=== PATIENT | male | born 1960 | race Caucasian/White ===

== ENCOUNTER 2018-08-23 02:37 | Emergency (ER) | payer SELFPAY ==
[~2018-08-23 02:37] MED LIST: IBUP800T19 PO
[2018-08-23 03:23] LABS: BASO % 1 % (0-3); EOS # 0.1 x10^3/uL (0.0-0.7); EOS % 3 % (0-3); HEMATOCRIT 44.5 % (39.0-53.0); HEMOGLOBIN 14.8 g/dL (13.0-17.5); LYMPH # 1.9 x10^3/uL (1.0-4.8); LYMPH % 45 % (24-48); MEAN CORPUSCULAR HEMOGLOBIN 33 pg (25-35); MEAN CORPUSCULAR HGB CONC 33 g/dL (31-37); MEAN CORPUSCULAR VOLUME 99 fL (79-100); MONO # 0.3 x10^3/uL (0.0-1.1); MONO % 8 % (0-9); NEUT # 1.9 x10^3uL (1.8-7.7); NEUT % 44 % (31-73); PLATELET COUNT 111 x10^3/uL (140-400); RED BLOOD COUNT 4.52 x10^6/uL (4.30-5.70); RED CELL DISTRIBUTION WIDTH 13.4 % (11.5-14.5); WHITE BLOOD COUNT 4.4 x10^3/uL (4.0-11.0)
[2018-08-23 03:26] LABS: BACTERIA,URINE 0 /HPF (0-FEW); BILIRUBIN,URINE NEG (NEG); CLARITY,URINE CLEAR; COLOR,URINE STRAW; GLUCOSE,URINE NEG (NEG); NITRITE,URINE NEG (NEG); RBC,URINE RARE /HPF (0-2); SQUAMOUS EPITHELIAL CELL,UR OCC /LPF; UROBILINOGEN,URINE 0.2 mg/dL (0.2 mg/dL); WBC,URINE 0 /HPF (0-4)
[2018-08-23] MEDS ORDERED: MVI, ADULT NO.4 WITH VIT K 10 ML, FOLIC ACID SYRINGE for ER 1 MG, THIAMINE INJ 100 MG i... IV ONE ×4 (03:30)
[2018-08-23] MEDS ORDERED: KETOROLAC 30 MG/ML VIAL. IV ONE (03:30)
[2018-08-23] MEDS ORDERED: MVI, ADULT NO.4 WITH VIT K 10 ML VIAL IV ONE (03:33)
[2018-08-23] MEDS ORDERED: FOLIC ACID 5 MG/ML SYRINGE for ER IV ONE (03:33)
[2018-08-23] MEDS ORDERED: THIAMINE IM 200 MG/2 ML VIAL. IM ONE (03:33)
[2018-08-23 03:52] LABS: BARBITURATES NEG (NEG); BENZODIAZEPINES NEG (NEG); CANNABINOIDS NEG (NEG); COCAINE NEG (NEG); METHADONE NEG (NEG); OPIATES NEG (NEG); PHENCYCLIDINE NEG (NEG)
[2018-08-23 03:53] LABS: AMPHETAMINE/METHAMPHETAMINE NEG (NEG)
[2018-08-23 03:56] LABS: ALBUMIN 4.1 g/dL (3.4-5.0); ALBUMIN/GLOBULIN RATIO 1.1 (1.0-1.7); CALCIUM 7.9 mg/dL (8.5-10.1); CREATININE 0.7 mg/dL (0.7-1.3); GFR 115.4; POTASSIUM 3.7 mmol/L (3.5-5.1); TOTAL BILIRUBIN 0.2 mg/dL (0.2-1.0); TOTAL PROTEIN 7.8 g/dL (6.4-8.2)
[2018-08-23] MEDS ORDERED: IV NORMAL SALINE 1,000ML 1,000 ML IV ONE ×3 (04:00→08:15)
--- NOTE | 2018-08-23 04:11 | ED.ADGEN ---
Past History Past Medical History: Alcoholism, Depression, Hypertension (MIA STALEY MD) Past Surgical History: No Surgical History (MIA STALEY MD) Alcohol Use: Heavy Drug Use: None (MIA STALEY MD) Adult General Chief Complaint Chief Complaint Intoxicated with suicide ideation (MIA STALEY MD) HPI HPI 58 years old presented emergency department with a suicide ideation stating, kill myself he also seemed intoxicated denies any other symptoms denies chest pain or abdominal pain diarrhea and urgency frequency a (MIA STALEY MD) Review of Systems Review of Systems Limited due to patient's mental status (MIA STALEY MD) Current Medications Current Medications Current Medications Medications (Trade) Dose Ordered Sig/Tara Start Time Stop Time Status Last Admin Dose Admin Folic Acid (FOLIC ACID SYRINGE for ER) 5 mg STK-MED ONCE 08/23/18 03:33 08/23/18 03:35 DC Ketorolac Tromethamine (Toradol 30mg Vial) 30 mg 1X ONCE 08/23/18 03:30 08/23/18 03:32 DC 08/23/18 03:45 30 MG Multivitamins/ Minerals (Infuvite Adult) 10 ml STK-MED ONCE 08/23/18 03:33 08/23/18 03:35 DC Multivitamins/ Minerals 10 ml/ Folic Acid 1 mg/ Thiamine HCl 100 mg/Sodium Chloride 1,011.1 ml @ 1,000 mls/ hr 1X ONCE 08/23/18 03:30 08/23/18 04:31 DC 08/23/18 03:47 1,000 MLS/HR Sodium Chloride 1,000 ml @ 1,000 mls/hr 1X ONCE 08/23/18 08:15 08/23/18 09:14 DC 08/23/18 08:14 1,000 MLS/HR Thiamine HCl (Thiamine Im) 200 mg STK-MED ONCE 08/23/18 03:33 08/23/18 03:34 DC (LG RENDON MD) Allergies Allergies Allergies Coded Allergies Type Severity Reaction Last Updated Verified No Known Drug Allergies 12/01/14 No (LG RENDON MD) Physical Exam Physical Exam Constitutional: Well developed, well nourished, no acute distress, non-toxic appearance. [] HENT: Normocephalic, atraumatic, bilateral external ears normal, oropharynx moist, no oral exudates, nose normal. [] Eyes: PERRLA, EOMI, conjunctiva normal, no discharge. [] Neck: Normal range of motion, no tenderness, supple, no stridor. [] Cardiovascular:Heart rate regular rhythm, no murmur [] Lungs & Thorax: Bilateral breath sounds clear to auscultation [] Abdomen: Bowel sounds normal, soft, no tenderness, no masses, no pulsatile masses. [] Skin: Warm, dry, no erythema, no rash. [] Back: No tenderness, no CVA tenderness. [] Extremities: No tenderness, no cyanosis, no clubbing, ROM intact, no edema. [] Very depressed very anxious (MIA STALEY MD) Current Patient Data Vital Signs Vital Signs Date Time Temp Pulse Resp B/P (MAP) Pulse Ox O2 Delivery O2 Flow Rate FiO2 08/23/18 07:08 97.6 72 16 111/66 (81) 93 Room Air (LG RENDON MD) Lab Results Laboratory Tests Test 08/23/18 02:40 08/23/18 03:00 08/23/18 07:35 08/23/18 08:22 Urine Collection Type Unknown Urine Color Straw Urine Clarity Clear Urine pH 5.5 Urine Specific [place] <=1.005 Urine Protein Neg (NEG-TRACE) Urine Glucose (UA) Neg mg/dL (NEG) Urine Ketones (Stick) Neg mg/dL (NEG) Urine Blood Neg (NEG) Urine Nitrite Neg (NEG) Urine Bilirubin Neg (NEG) Urine Urobilinogen Dipstick 0.2 mg/dL (0.2 mg/dL) Urine Leukocyte Esterase Neg (NEG) Urine RBC Rare /HPF (0-2) Urine WBC 0 /HPF (0-4) Urine Squamous Epithelial Cells Occ /LPF Urine Bacteria 0 /HPF (0-FEW) White Blood Count 4.4 x10^3/uL (4.0-11.0) Red Blood Count 4.52 x10^6/uL (4.30-5.70) Hemoglobin 14.8 g/dL (13.0-17.5) Hematocrit 44.5 % (39.0-53.0) Mean Corpuscular Volume 99 fL (79-100) Mean Corpuscular Hemoglobin 33 pg (25-35) Mean Corpuscular Hemoglobin Concent 33 g/dL (31-37) Red Cell Distribution Width 13.4 % (11.5-14.5) Platelet Count 111 x10^3/uL (140-400) L Neutrophils (%) (Auto) 44 % (31-73) Lymphocytes (%) (Auto) 45 % (24-48) Monocytes (%) (Auto) 8 % (0-9) Eosinophils (%) (Auto) 3 % (0-3) Basophils (%) (Auto) 1 % (0-3) Neutrophils # (Auto) 1.9 x10^3uL (1.8-7.7) Lymphocytes # (Auto) 1.9 x10^3/uL (1.0-4.8) Monocytes # (Auto) 0.3 x10^3/uL (0.0-1.1) Eosinophils # (Auto) 0.1 x10^3/uL (0.0-0.7) Basophils # (Auto) 0.0 x10^3/uL (0.0-0.2) Sodium Level 141 mmol/L (136-145) Potassium Level 3.7 mmol/L (3.5-5.1) Chloride Level 101 mmol/L (98-107) Carbon Dioxide Level 28 mmol/L (21-32) Anion Gap 12 (6-14) Blood Urea Nitrogen 10 mg/dL (8-26) Creatinine 0.7 mg/dL (0.7-1.3) Estimated GFR (Cockcroft-Gault) 115.4 BUN/Creatinine Ratio 14 (6-20) Glucose Level 100 mg/dL (70-99) H Calcium Level 7.9 mg/dL (8.5-10.1) L Total Bilirubin 0.2 mg/dL (0.2-1.0) Aspartate Amino Transferase (AST) 44 U/L (15-37) H Alanine Aminotransferase (ALT) 53 U/L (16-63) Alkaline Phosphatase 88 U/L (46-116) Total Protein 7.8 g/dL (6.4-8.2) Albumin 4.1 g/dL (3.4-5.0) Albumin/Globulin Ratio 1.1 (1.0-1.7) Urine Opiates Screen Neg (NEG) Urine Methadone Screen Neg (NEG) Urine Barbiturates Neg (NEG) Urine Phencyclidine Screen Neg (NEG) Urine Amphetamine/Methamphetamine Neg (NEG) Urine Benzodiazepines Screen Neg (NEG) Urine Cocaine Screen Neg (NEG) Urine Cannabinoids Screen Neg (NEG) Ethyl Alcohol Level 344 mg/dL (0-10) H 237 mg/dL (0-10) H Urine Ethyl Alcohol Pos (NEG) Glucose (Fingerstick) 84 mg/dL (70-99) Test 08/23/18 08:54 Ethyl Alcohol Level 206 mg/dL (0-10) H (LG RENDON MD) EKG EKG [] (MIA STALEY MD) Radiology/Procedures Radiology/Procedures [] (MIA STALEY MD) Course & Med Decision Making Course & Med Decision Making Pertinent Labs and Imaging studies reviewed. (See chart for details) [] (MIA STALEY MD) Course & Med Decision Making Patient's care transferred to id by Dr. Staley at [phone]. Patient had alcohol intoxication and suicidal talked with blood alcohol of 333. Repeat blood alcohol was 237 and 206. Patient had psychiatric evaluation and denied suicidal and homicidal ideation. Patient did not have criteria for inpatient treatment. Patient instructed to quit drinking alcohol and smoking cigarettes and follow with a primary care physician. Patient ambulated without problem and tolerated oral intake. (LG RENDON MD) Final Impression Final Impression [] Problems: (1) Intoxication (2) Suicide ideation (MIA STALEY MD) Problems: (1) Alcohol intoxication Qualifiers: Qualified Codes: F10.920 - Alcohol use, unspecified with intoxication, uncomplicated (2) Suicidal thoughts (3) Tobacco abuse (4) Tobacco abuse counseling (LG RENDON MD) Dragon Disclaimer Dragon Disclaimer This electronic medical record was generated, in whole or in part, using a voice recognition dictation system. (MIA STALEY MD) Departure Time of Disposition: 11:11 (LG RENDON MD) Disposition: 01 HOME, SELF-CARE Condition: IMPROVED Patient Instructions: Alcohol Intoxication, Smoking Cessation, Tips For Success , Suicidal Feelings, How to Help Yourself Additional Instructions: Drink plenty of liquids Follow-up with your primary care physician in 3-5 days Return to ER if not getting better MIA STALEY MD Aug 23, 2018 04:11 LG RENDON MD Aug 23, 2018 11:19
[2018-08-23 07:08] VITALS: BP 111/66
== END 2018-08-23 12:00 | disposition home or self-care (01) ==
LOC: ER 02:37
DX: F10.229 Alcohol dependence with intoxication, unspecified (principal); R45.851 Suicidal ideations; F32.9 Major depressive disorder, single episode, unspecified; I10 Essential (primary) hypertension; Z72.0 Tobacco use; Z71.6 Tobacco abuse counseling; Y90.8 Blood alcohol level of 240 mg/100 ml or more
CPT/HCPCS: 36415; 80053; 80307; 81001; 82947; 85025; 96365; 96366; 96375; 99284; G0480; J1885; J7030

== ENCOUNTER 2018-09-26 18:44 | Inpatient (IN) | payer SELFPAY ==
[~2018-09-26] VITALS: Ht 185.4 cm; Wt 86.2 kg
[2018-09-26] MEDS: IV RINGERS SOLUTION,LACTATED 1,000 ML IV SCH
--- NOTE | 2018-09-26 18:52 | ED.ADGEN ---
Past History Past Medical History: Alcoholism, Depression, Hypertension Past Surgical History: No Surgical History Alcohol Use: Heavy Drug Use: None Adult General Chief Complaint Chief Complaint ".. I want to quit alcohol.. but if I try .. I get seizures.. .. I drank way... too much tonight..." HPI HPI Patient is a 58 year old male who presents with above hx and complaints alcohol intoxication. Patient states he drinks much he can not stand or walk. He states he would like to have alcohol rehabilitation, however when he stops drinking he developed seizures. Patient states he has been sober previously for several months at a time. He denies any injuries. No recent travel or specific ill contacts. No history immunosuppression. Review of Systems Review of Systems Constitutional: Denies fever or chills [] Eyes: Denies change in visual acuity, redness, or eye pain [] HENT: Denies nasal congestion or sore throat [] Respiratory: Denies cough or shortness of breath [] Cardiovascular: No additional information not addressed in HPI [] GI: Denies abdominal pain, nausea, vomiting, bloody stools or diarrhea [] : Denies dysuria or hematuria [] Musculoskeletal: Denies back pain or joint pain [] Integument: Denies rash or skin lesions [] Neurologic: Denies headache, focal weakness or sensory changes [] Endocrine: Denies polyuria or polydipsia [] All other systems were reviewed and found to be within normal limits, except as documented in this note. Family History Family History Noncontributory Current Medications Current Medications Current Medications Medications (Trade) Dose Ordered Sig/Tara Start Time Stop Time Status Last Admin Dose Admin Lactated Ringer's 1,000 ml @ 160 mls/hr Q6H15M 09/26/18 21:00 09/26/18 00:00 160 MLS/HR Lorazepam (Ativan) 2 mg QID 09/26/18 21:00 Multivitamins/ Minerals 10 ml/ Folic Acid 1 mg/ Thiamine HCl 100 mg/Lactated Ringer's 1,011.2 ml @ 1,011.2 mls/hr 1X ONCE 09/26/18 19:00 09/26/18 19:59 DC 09/26/18 19:36 1,011.2 MLS/HR Ondansetron HCl (Zofran) 4 mg PRN Q4HRS PRN 09/26/18 20:45 09/27/18 20:44 Allergies Allergies Allergies Coded Allergies Type Severity Reaction Last Updated Verified No Known Drug Allergies 09/26/18 No Physical Exam Physical Exam Constitutional: Very intoxicated in appearance. [] HENT: Normocephalic, atraumatic, bilateral external ears normal, oropharynx moist, no oral exudates, nose normal. [] Eyes: PERRLA, EOMI, conjunctiva injected, no discharge. [] Neck: Normal range of motion, no tenderness, supple, no stridor. [] Cardiovascular: Tachycardia Heart rate regular rhythm, no murmur [] Lungs & Thorax: Bilateral breath sounds equal apex with scattered wheezes on auscultation [] Abdomen: Bowel sounds decreased, soft, no tenderness, no masses, no pulsatile masses. [] Skin: Warm, dry, no erythema, no rash. [] Back: No tenderness, no CVA tenderness. [] Extremities: No tenderness, no cyanosis, no clubbing, ROM intact, no edema. [] Old and new contusion sites and bony points Neurologic: Alert and oriented X 3, moves all extremities on request. Has decreased plantar sensory function, discoordinated . Unable to walk due to intoxication Psychologic: Affect anxious, judgement normal, mood depressed. Denies suicidal ideation. Current Patient Data Vital Signs Vital Signs Date Time Temp Pulse Resp B/P (MAP) Pulse Ox O2 Delivery O2 Flow Rate FiO2 09/26/18 21:08 79 16 138/79 (98) 94 Room Air 09/26/18 18:44 97.9 Lab Results Laboratory Tests Test 09/26/18 19:00 White Blood Count 3.7 x10^3/uL (4.0-11.0) L Red Blood Count 4.60 x10^6/uL (4.30-5.70) Hemoglobin 15.0 g/dL (13.0-17.5) Hematocrit 44.7 % (39.0-53.0) Mean Corpuscular Volume 97 fL (79-100) Mean Corpuscular Hemoglobin 33 pg (25-35) Mean Corpuscular Hemoglobin Concent 34 g/dL (31-37) Red Cell Distribution Width 13.0 % (11.5-14.5) Platelet Count 81 x10^3/uL (140-400) L Neutrophils (%) (Auto) 42 % (31-73) Lymphocytes (%) (Auto) 44 % (24-48) Monocytes (%) (Auto) 11 % (0-9) H Eosinophils (%) (Auto) 2 % (0-3) Basophils (%) (Auto) 1 % (0-3) Neutrophils # (Auto) 1.6 x10^3uL (1.8-7.7) L Lymphocytes # (Auto) 1.6 x10^3/uL (1.0-4.8) Monocytes # (Auto) 0.4 x10^3/uL (0.0-1.1) Eosinophils # (Auto) 0.1 x10^3/uL (0.0-0.7) Basophils # (Auto) 0.0 x10^3/uL (0.0-0.2) Prothrombin Time 9.8 SEC (9.4-11.4) Prothrombin Time INR 1.0 (0.9-1.1) PTT 27 SEC (23-33) Urine Collection Type Unknown Urine Color Straw Urine Clarity Clear Urine pH 5.5 Urine Specific [place] <=1.005 Urine Protein Neg (NEG-TRACE) Urine Glucose (UA) Neg mg/dL (NEG) Urine Ketones (Stick) Neg mg/dL (NEG) Urine Blood Neg (NEG) Urine Nitrite Neg (NEG) Urine Bilirubin Neg (NEG) Urine Urobilinogen Dipstick 0.2 mg/dL (0.2 mg/dL) Urine Leukocyte Esterase Neg (NEG) Urine RBC 0 /HPF (0-2) Urine WBC 0 /HPF (0-4) Urine Squamous Epithelial Cells Occ /LPF Urine Bacteria 0 /HPF (0-FEW) Sodium Level 144 mmol/L (136-145) Potassium Level 4.1 mmol/L (3.5-5.1) Chloride Level 105 mmol/L (98-107) Carbon Dioxide Level 29 mmol/L (21-32) Anion Gap 10 (6-14) Blood Urea Nitrogen 7 mg/dL (8-26) L Creatinine 0.8 mg/dL (0.7-1.3) Estimated GFR (Cockcroft-Gault) 98.9 Glucose Level 98 mg/dL (70-99) Calcium Level 7.9 mg/dL (8.5-10.1) L Magnesium Level 2.1 mg/dL (1.8-2.4) Total Bilirubin 0.3 mg/dL (0.2-1.0) Direct Bilirubin 0.1 mg/dL (0.0-0.2) Aspartate Amino Transferase (AST) 69 U/L (15-37) H Alanine Aminotransferase (ALT) 68 U/L (16-63) H Alkaline Phosphatase 80 U/L (46-116) Creatine Kinase 258 U/L (39-308) Troponin I Quantitative < 0.017 ng/mL (0-0.055) ZG-Ope-X-Type Natriuretic Peptide 9 pg/mL (0-124) Total Protein 7.6 g/dL (6.4-8.2) Albumin 3.8 g/dL (3.4-5.0) Lipase 247 U/L (73-393) Urine Opiates Screen Neg (NEG) Urine Methadone Screen Neg (NEG) Urine Barbiturates Neg (NEG) Urine Phencyclidine Screen Neg (NEG) Urine Amphetamine/Methamphetamine Neg (NEG) Urine Benzodiazepines Screen Neg (NEG) Urine Cocaine Screen Neg (NEG) Urine Cannabinoids Screen Neg (NEG) Ethyl Alcohol Level 408 mg/dL (0-10) *H Urine Ethyl Alcohol Pos (NEG) EKG EKG I interpretation EKG shows a sinus rhythm at 86 bpm. There is some nonspecific contour changes in anterior lateral areas. But no findings acute STEMI of contralateral changes.[] Radiology/Procedures Radiology/Procedures CXR- limited - no monitor. Borderline cardio silhouette. Atelectasis. Limited no xray monitor[] Course & Med Decision Making Course & Med Decision Making Pertinent Labs and Imaging studies reviewed. (See chart for details). Discussed presentation, testing and treatment plan with Dr. Stewart- will admit for further eval. and tx. [] Final Impression Final Impression 1. Alcohol abuse- ETOH 408 2. Elevated AST 69 ALT 68[] 3. Thrombocytopenia 81 4. Dehydration 5. History of alcohol withdrawal seizures 6. Depression Dragon Disclaimer Dragon Disclaimer This electronic medical record was generated, in whole or in part, using a voice recognition dictation system. Dragon Disclaimer This chart was dictated in whole or in part using Voice Recognition software in a busy, high-work load, and often noisy Emergency Department environment. It may contain unintended and wholly unrecognized errors or omissions. Dragon Disclaimer This chart was dictated in whole or in part using Voice Recognition software in a busy, high-work load, and often noisy Emergency Department environment. It may contain unintended and wholly unrecognized errors or omissions. Discharge Summary Brief Hospital Course Allergies Allergies Coded Allergies Type Severity Reaction Last Updated Verified No Known Drug Allergies 09/26/18 No Vital Signs Vital Signs Date Time Temp Pulse Resp B/P (MAP) Pulse Ox O2 Delivery O2 Flow Rate FiO2 09/26/18 21:08 79 16 138/79 (98) 94 Room Air 09/26/18 18:44 97.9 Lab Results Laboratory Tests Test 09/26/18 19:00 White Blood Count 3.7 x10^3/uL (4.0-11.0) Red Blood Count 4.60 x10^6/uL (4.30-5.70) Hemoglobin 15.0 g/dL (13.0-17.5) Hematocrit 44.7 % (39.0-53.0) Mean Corpuscular Volume 97 fL (79-100) Mean Corpuscular Hemoglobin 33 pg (25-35) Mean Corpuscular Hemoglobin Concent 34 g/dL (31-37) Red Cell Distribution Width 13.0 % (11.5-14.5) Platelet Count 81 x10^3/uL (140-400) Neutrophils (%) (Auto) 42 % (31-73) Lymphocytes (%) (Auto) 44 % (24-48) Monocytes (%) (Auto) 11 % (0-9) Eosinophils (%) (Auto) 2 % (0-3) Basophils (%) (Auto) 1 % (0-3) Neutrophils # (Auto) 1.6 x10^3uL (1.8-7.7) Lymphocytes # (Auto) 1.6 x10^3/uL (1.0-4.8) Monocytes # (Auto) 0.4 x10^3/uL (0.0-1.1) Eosinophils # (Auto) 0.1 x10^3/uL (0.0-0.7) Basophils # (Auto) 0.0 x10^3/uL (0.0-0.2) Prothrombin Time 9.8 SEC (9.4-11.4) Prothromb Time International Ratio 1.0 (0.9-1.1) Activated Partial Thromboplast Time 27 SEC (23-33) Urine Collection Type Unknown Urine Color Straw Urine Clarity Clear Urine pH 5.5 Urine Specific [place] <=1.005 Urine Protein Neg (NEG-TRACE) Urine Glucose (UA) Neg mg/dL (NEG) Urine Ketones (Stick) Neg mg/dL (NEG) Urine Blood Neg (NEG) Urine Nitrite Neg (NEG) Urine Bilirubin Neg (NEG) Urine Urobilinogen Dipstick 0.2 mg/dL (0.2 mg/dL) Urine Leukocyte Esterase Neg (NEG) Urine RBC 0 /HPF (0-2) Urine WBC 0 /HPF (0-4) Urine Squamous Epithelial Cells Occ /LPF Urine Bacteria 0 /HPF (0-FEW) Sodium Level 144 mmol/L (136-145) Potassium Level 4.1 mmol/L (3.5-5.1) Chloride Level 105 mmol/L (98-107) Carbon Dioxide Level 29 mmol/L (21-32) Anion Gap 10 (6-14) Blood Urea Nitrogen 7 mg/dL (8-26) Creatinine 0.8 mg/dL (0.7-1.3) Estimated GFR (Cockcroft-Gault) 98.9 Glucose Level 98 mg/dL (70-99) Calcium Level 7.9 mg/dL (8.5-10.1) Magnesium Level 2.1 mg/dL (1.8-2.4) Total Bilirubin 0.3 mg/dL (0.2-1.0) Direct Bilirubin 0.1 mg/dL (0.0-0.2) Aspartate Amino Transf (AST/SGOT) 69 U/L (15-37) Alanine Aminotransferase (ALT/SGPT) 68 U/L (16-63) Alkaline Phosphatase 80 U/L (46-116) Creatine Kinase 258 U/L (39-308) Troponin I Quantitative < 0.017 ng/mL (0-0.055) AD-Lhm-X-Type Natriuretic Peptide 9 pg/mL (0-124) Total Protein 7.6 g/dL (6.4-8.2) Albumin 3.8 g/dL (3.4-5.0) Lipase 247 U/L (73-393) Urine Opiates Screen Neg (NEG) Urine Methadone Screen Neg (NEG) Urine Barbiturates Neg (NEG) Urine Phencyclidine Screen Neg (NEG) Urine Amphetamine/Methamphetamine Neg (NEG) Urine Benzodiazepines Screen Neg (NEG) Urine Cocaine Screen Neg (NEG) Urine Cannabinoids Screen Neg (NEG) Ethyl Alcohol Level 408 mg/dL (0-10) Urine Ethyl Alcohol Pos (NEG) Brief Hospital Course Mr. Whitley is a 58 old male who presented with above hx and complaints ETOH. Hx. ETOH withdrawal. Admitted Dr. Stewart. Discharge Information Condition at Discharge: Improved, Stable Dischare Medications Current Medications Multivitamins/ Minerals 10 ml/ Folic Acid 1 mg/ Thiamine HCl 100 mg/Lactated Ringer's 1,011.2 ml @ 1,011.2 mls/hr 1X ONCE IV Last administered on at 19:36; Admin Dose 1,011.2 MLS/HR; Start 09/26/18 at 19:00; Stop 09/26/18 at 19:59; Status DC Ondansetron HCl (Zofran) 4 mg PRN Q4HRS PRN IV NAUSEA/VOMITING; Start 09/26/18 at 20:45; Stop 09/27/18 at 20:44 Lactated Ringer's 1,000 ml @ 160 mls/hr Q6H15M IV Last administered on at 00:00; Admin Dose 160 MLS/HR; Start 09/26/18 at 21:00 Lorazepam (Ativan) 2 mg PRN 1X PRN IV seizure; Start 09/26/18 at 20:45 Lorazepam (Ativan) 2 mg QID PO ; Start 09/26/18 at 21:00 Active Scripts Active Ibuprofen 800 Mg Tablet 1 Tab PO TID PRN Discharge Summary Brief Hospital Course Allergies Allergies Coded Allergies Type Severity Reaction Last Updated Verified No Known Drug Allergies 09/26/18 No Vital Signs Vital Signs Date Time Temp Pulse Resp B/P (MAP) Pulse Ox O2 Delivery O2 Flow Rate FiO2 09/26/18 21:08 79 16 138/79 (98) 94 Room Air 09/26/18 18:44 97.9 Lab Results Laboratory Tests Test 09/26/18 19:00 White Blood Count 3.7 x10^3/uL (4.0-11.0) Red Blood Count 4.60 x10^6/uL (4.30-5.70) Hemoglobin 15.0 g/dL (13.0-17.5) Hematocrit 44.7 % (39.0-53.0) Mean Corpuscular Volume 97 fL (79-100) Mean Corpuscular Hemoglobin 33 pg (25-35) Mean Corpuscular Hemoglobin Concent 34 g/dL (31-37) Red Cell Distribution Width 13.0 % (11.5-14.5) Platelet Count 81 x10^3/uL (140-400) Neutrophils (%) (Auto) 42 % (31-73) Lymphocytes (%) (Auto) 44 % (24-48) Monocytes (%) (Auto) 11 % (0-9) Eosinophils (%) (Auto) 2 % (0-3) Basophils (%) (Auto) 1 % (0-3) Neutrophils # (Auto) 1.6 x10^3uL (1.8-7.7) Lymphocytes # (Auto) 1.6 x10^3/uL (1.0-4.8) Monocytes # (Auto) 0.4 x10^3/uL (0.0-1.1) Eosinophils # (Auto) 0.1 x10^3/uL (0.0-0.7) Basophils # (Auto) 0.0 x10^3/uL (0.0-0.2) Prothrombin Time 9.8 SEC (9.4-11.4) Prothromb Time International Ratio 1.0 (0.9-1.1) Activated Partial Thromboplast Time 27 SEC (23-33) Urine Collection Type Unknown Urine Color Straw Urine Clarity Clear Urine pH 5.5 Urine Specific [place] <=1.005 Urine Protein Neg (NEG-TRACE) Urine Glucose (UA) Neg mg/dL (NEG) Urine Ketones (Stick) Neg mg/dL (NEG) Urine Blood Neg (NEG) Urine Nitrite Neg (NEG) Urine Bilirubin Neg (NEG) Urine Urobilinogen Dipstick 0.2 mg/dL (0.2 mg/dL) Urine Leukocyte Esterase Neg (NEG) Urine RBC 0 /HPF (0-2) Urine WBC 0 /HPF (0-4) Urine Squamous Epithelial Cells Occ /LPF Urine Bacteria 0 /HPF (0-FEW) Sodium Level 144 mmol/L (136-145) Potassium Level 4.1 mmol/L (3.5-5.1) Chloride Level 105 mmol/L (98-107) Carbon Dioxide Level 29 mmol/L (21-32) Anion Gap 10 (6-14) Blood Urea Nitrogen 7 mg/dL (8-26) Creatinine 0.8 mg/dL (0.7-1.3) Estimated GFR (Cockcroft-Gault) 98.9 Glucose Level 98 mg/dL (70-99) Calcium Level 7.9 mg/dL (8.5-10.1) Magnesium Level 2.1 mg/dL (1.8-2.4) Total Bilirubin 0.3 mg/dL (0.2-1.0) Direct Bilirubin 0.1 mg/dL (0.0-0.2) Aspartate Amino Transf (AST/SGOT) 69 U/L (15-37) Alanine Aminotransferase (ALT/SGPT) 68 U/L (16-63) Alkaline Phosphatase 80 U/L (46-116) Creatine Kinase 258 U/L (39-308) Troponin I Quantitative < 0.017 ng/mL (0-0.055) WK-Xxd-Y-Type Natriuretic Peptide 9 pg/mL (0-124) Total Protein 7.6 g/dL (6.4-8.2) Albumin 3.8 g/dL (3.4-5.0) Lipase 247 U/L (73-393) Urine Opiates Screen Neg (NEG) Urine Methadone Screen Neg (NEG) Urine Barbiturates Neg (NEG) Urine Phencyclidine Screen Neg (NEG) Urine Amphetamine/Methamphetamine Neg (NEG) Urine Benzodiazepines Screen Neg (NEG) Urine Cocaine Screen Neg (NEG) Urine Cannabinoids Screen Neg (NEG) Ethyl Alcohol Level 408 mg/dL (0-10) Urine Ethyl Alcohol Pos (NEG) Brief Hospital Course Mr. Whitley is a 58 old [sex] who presented with [ ] Discharge Information Dischare Medications Current Medications Multivitamins/ Minerals 10 ml/ Folic Acid 1 mg/ Thiamine HCl 100 mg/Lactated Ringer's 1,011.2 ml @ 1,011.2 mls/hr 1X ONCE IV Last administered on at 19:36; Admin Dose 1,011.2 MLS/HR; Start 09/26/18 at 19:00; Stop 09/26/18 at 19:59; Status DC Ondansetron HCl (Zofran) 4 mg PRN Q4HRS PRN IV NAUSEA/VOMITING; Start 09/26/18 at 20:45; Stop 09/27/18 at 20:44 Lactated Ringer's 1,000 ml @ 160 mls/hr Q6H15M IV Last administered on at 00:00; Admin Dose 160 MLS/HR; Start 09/26/18 at 21:00 Lorazepam (Ativan) 2 mg PRN 1X PRN IV seizure; Start 09/26/18 at 20:45 Lorazepam (Ativan) 2 mg QID PO ; Start 09/26/18 at 21:00 Active Scripts Active Ibuprofen 800 Mg Tablet 1 Tab PO TID PRN HORTENSIA SYKES MD Sep 26, 2018 18:52
[2018-09-26] MEDS ORDERED: MVI, ADULT NO.4 WITH VIT K 10 ML, FOLIC ACID SYRINGE for ER 1 MG, THIAMINE INJ 100 MG i... IV ONE ×4 (19:00)
[2018-09-26] MEDS ORDERED: MVI, ADULT NO.4 WITH VIT K 10 ML VIAL IV ONE (19:30)
[2018-09-26] MEDS ORDERED: FOLIC ACID 5 MG/ML SYRINGE for ER IV ONE (19:30)
[2018-09-26] MEDS ORDERED: THIAMINE 200 MG/2 ML VIAL. IV ONE (19:30)
[2018-09-26 19:43] LABS: BARBITURATES NEG (NEG); BASO % 1 % (0-3); BENZODIAZEPINES NEG (NEG); CANNABINOIDS NEG (NEG); COCAINE NEG (NEG); EOS # 0.1 x10^3/uL (0.0-0.7); EOS % 2 % (0-3); HEMATOCRIT 44.7 % (39.0-53.0); LYMPH # 1.6 x10^3/uL (1.0-4.8); LYMPH % 44 % (24-48); MEAN CORPUSCULAR HEMOGLOBIN 33 pg (25-35); MEAN CORPUSCULAR HGB CONC 34 g/dL (31-37); MEAN CORPUSCULAR VOLUME 97 fL (79-100); METHADONE NEG (NEG); MONO # 0.4 x10^3/uL (0.0-1.1); MONO % 11 % (0-9); NEUT # 1.6 x10^3uL (1.8-7.7); NEUT % 42 % (31-73); OPIATES NEG (NEG); PHENCYCLIDINE NEG (NEG); PLATELET COUNT 81 x10^3/uL (140-400); WHITE BLOOD COUNT 3.7 x10^3/uL (4.0-11.0)
[2018-09-26 19:44] LABS: AMPHETAMINE/METHAMPHETAMINE NEG (NEG)
[2018-09-26 19:46] LABS: CLARITY,URINE CLEAR; COLOR,URINE STRAW; GLUCOSE,URINE NEG (NEG)
[2018-09-26 19:47] LABS: BACTERIA,URINE 0 /HPF (0-FEW); BILIRUBIN,URINE NEG (NEG); NITRITE,URINE NEG (NEG); RBC,URINE 0 /HPF (0-2); SQUAMOUS EPITHELIAL CELL,UR OCC /LPF; UROBILINOGEN,URINE 0.2 mg/dL (0.2 mg/dL); WBC,URINE 0 /HPF (0-4)
[2018-09-26 19:59] LABS: ALBUMIN 3.8 g/dL (3.4-5.0); CALCIUM 7.9 mg/dL (8.5-10.1); CREATININE 0.8 mg/dL (0.7-1.3); DIRECT BILIRUBIN 0.1 mg/dL (0.0-0.2); GFR 98.9; MAGNESIUM 2.1 mg/dL (1.8-2.4); POTASSIUM 4.1 mmol/L (3.5-5.1); TOTAL BILIRUBIN 0.3 mg/dL (0.2-1.0); TOTAL PROTEIN 7.6 g/dL (6.4-8.2)
[2018-09-26] MEDS ORDERED: LORazepam 2 MG/ML VIAL IV PRN (20:45)
[2018-09-26] MEDS ORDERED: ONDANSETRON PF 4 MG/2 ML VIAL. IV PRN (20:45)
[2018-09-26] MEDS ORDERED: LORazepam 1 MG TABLET PO SCH (21:00)
[2018-09-26 23:00] VITALS: BP 135/53
[2018-09-27] VITALS (10 sets, daily range): BP systolic 111–184; BP diastolic 65–87
[2018-09-27] MEDS ORDERED: IPRATRPIUM/ALBUTEROL 0.5/2.5MG 3 ML NEBU. ONE (05:33)
[2018-09-27] MEDS: IV RINGERS SOLUTION,LACTATED 1,000 ML IV SCH ×4 (05:47→21:17)
[2018-09-27] MEDS: IPRATRPIUM/ALBUTEROL 0.5/2.5MG 3 ML NEBU. NEB SCH ×4 (06:00→21:12)
[2018-09-27 06:03] LABS: BASO % 1 % (0-3); EOS # 0.1 x10^3/uL (0.0-0.7); EOS % 2 % (0-3); HEMATOCRIT 42.9 % (39.0-53.0); HEMOGLOBIN 14.2 g/dL (13.0-17.5); LYMPH % 20 % (24-48); MEAN CORPUSCULAR HEMOGLOBIN 32 pg (25-35); MEAN CORPUSCULAR HGB CONC 33 g/dL (31-37); MEAN CORPUSCULAR VOLUME 98 fL (79-100); MONO # 0.3 x10^3/uL (0.0-1.1); MONO % 7 % (0-9); NEUT # 3.5 x10^3uL (1.8-7.7); NEUT % 70 % (31-73); PLATELET COUNT 64 x10^3/uL (140-400); RED BLOOD COUNT 4.37 x10^6/uL (4.30-5.70); RED CELL DISTRIBUTION WIDTH 13.3 % (11.5-14.5); WHITE BLOOD COUNT 4.9 x10^3/uL (4.0-11.0)
[2018-09-27 06:12] LABS: CALCIUM 8.2 mg/dL (8.5-10.1); CREATININE 0.8 mg/dL (0.7-1.3); GFR 98.9; POTASSIUM 4.3 mmol/L (3.5-5.1)
[2018-09-27] MEDS ORDERED: cloNIDine HCL 0.1 MG TABLET PO PRN (07:15)
[2018-09-27] MEDS: MVI, ADULT NO.4 WITH VIT K 10 ML, FOLIC ACID SYRINGE for ER 1 MG, THIAMINE INJ 100 MG i... IV SCH ×4 (09:05)
[2018-09-27] MEDS: chlordiazePOXIDE HCL 25 MG CAPSULE PO PRN ×2 (10:01→15:23)
--- NOTE | 2018-09-27 12:15 | RAD ---
Indication:Tachycardia TECHNIQUE:Portable AP chest X-ray COMPARISON: None FINDINGS: Heart is normal in size. Lungs are clear. No pneumothorax or pleural effusion. Visualized bony thorax is within normal limits. IMPRESSION: No acute pulmonary process. Electronically signed by: Sharif Girard DO (09/27/2018 12:10 PM) [place]
--- NOTE | 2018-09-27 18:15 | HP ---
ADMIT DATE: 09/26/2018 HISTORY OF PRESENT ILLNESS: A 58-year-old male who came in through the Emergency Room with once he quit alcohol he gets seizures when he comes off, used to drink too much. The patient also is very depressed, very suicidal ideation, but no thoughts of carrying it out. The patient liked to go through alcohol rehab and developed a seizure activity. The patient was admitted for further evaluation and monitoring as he goes through detox. PAST MEDICAL HISTORY: Cardiac disorders, hypertension, depression, anxiety, self-mutilation, alcohol abuse. Influenzas immunizations are up-to-date. FAMILY HISTORY: Positive for substance abuse. HOME MEDICATIONS: Ibuprofen 800 t.i.d. p.r.n. ALLERGIES: No known allergies. SOCIAL HISTORY: The patient is a full code. The patient has about a 50-ymfs-wdel history of smoking, apparently drank within the last several hours of being admitted to the hospital. REVIEW OF SYSTEMS: Denies chest pain. Denies abdominal pain. He does have some mild nausea, but no vomiting. The patient otherwise is denying most other problems except from his alcohol withdrawal. PHYSICAL EXAMINATION: GENERAL: This is a white male, looking very depressed. VITAL SIGNS: Blood pressure 183/86 (NC), respiratory rate 18, pulse 100 and afebrile. HEENT: The patient's head was atraumatic, normocephalic. Eyes: PERRLA without jaundice. Mouth and throat were normal. NECK: Supple, without JVD, carotid bruits. No thyromegaly. LUNGS: Diminished throughout, poor movement of air. CARDIOVASCULAR: ____ sinus rhythm, tachycardic. ABDOMEN: Soft, nontender, no rebounding or guarding. Positive bowel sounds, no hepatosplenomegaly was noted, protuberant. EXTREMITIES: No clubbing, cyanosis. No edema. NEUROLOGIC: The patient is alert, but very depressed, suicidal thoughts. The patient otherwise neurologically intact. PLAN: We will go ahead and continue to monitor detox programs, CIWA protocol. Make further evaluation on him. Alcohol level of 408. Otherwise, chemistries were basically stable and a CBC was as well. IMPRESSION AND PLAN: Alcohol withdrawal, alcoholism, cirrhosis of the liver, severe depression. Continue to monitor in the ICU. Considered consult with Dr. Juarez. Detox protocol. BRI TORRES MD DR: DIANNA/ruby JOB#: [id number] / [id number]
[2018-09-27] MEDS: LORazepam 2 MG/ML VIAL IV PRN (19:43)
[2018-09-28] MEDS: LORazepam 2 MG/ML VIAL IV PRN ×2 (01:12→23:17)
--- NOTE | 2018-09-28 01:24 | EKG ---
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
[2018-09-28] MEDS: IV RINGERS SOLUTION,LACTATED 1,000 ML IV SCH ×3 (03:18→14:07)
[2018-09-28 05:57] VITALS: BP 147/79
[2018-09-28] MEDS: MVI, ADULT NO.4 WITH VIT K 10 ML, FOLIC ACID SYRINGE for ER 1 MG, THIAMINE INJ 100 MG i... IV SCH ×4 (08:54)
[2018-09-28] MEDS: chlordiazePOXIDE HCL 25 MG CAPSULE PO PRN ×2 (09:13→20:14)
[2018-09-28 09:30] VITALS: BP 163/72
[2018-09-28 13:14] LABS: CREATININE 0.8 mg/dL (0.7-1.3); GFR 98.9
[2018-09-28 13:49] LABS: BASO % 0 % (0-3); EOS % 1 % (0-3); HEMOGLOBIN 14.3 g/dL (13.0-17.5); LYMPH # 0.9 x10^3/uL (1.0-4.8); LYMPH % 14 % (24-48); MEAN CORPUSCULAR HEMOGLOBIN 32 pg (25-35); MEAN CORPUSCULAR HGB CONC 33 g/dL (31-37); MEAN CORPUSCULAR VOLUME 97 fL (79-100); MONO # 0.4 x10^3/uL (0.0-1.1); MONO % 6 % (0-9); NEUT # 4.9 x10^3uL (1.8-7.7); NEUT % 79 % (31-73); PLATELET COUNT 52 x10^3/uL (140-400); RED BLOOD COUNT 4.43 x10^6/uL (4.30-5.70); RED CELL DISTRIBUTION WIDTH 12.7 % (11.5-14.5); WHITE BLOOD COUNT 6.3 x10^3/uL (4.0-11.0)
[2018-09-28] MEDS: CITALOPRAM 20 MG TABLET. PO SCH (14:06)
[2018-09-28] MEDS: LISINOPRIL 20 MG TABLET PO SCH (14:07)
[2018-09-28 14:16] VITALS: BP 180/81
[2018-09-28 17:18] VITALS: BP 168/94
--- NOTE | 2018-09-28 18:07 | PN ---
DATE: 09/28/2018 SUBJECTIVE: The patient sitting on the edge of the bed, in no apparent respiratory distress. He was continued to be very tremulous and his blood pressure is high. He stated that he has continued to have some suicidal ideation and alcohol made it worse. He stopped going to [facility] as used to get his antihypertensive medication in the form of lisinopril, trazodone, and Celexa. OBJECTIVE: GENERAL: When I saw him this afternoon, he looked well and was clearly in no apparent respiratory distress. No pallor, jaundice or cyanosis. No lymphadenopathy, no thyromegaly. No jugular venous distension. No limb edema. VITAL SIGNS: His heart rate was 82, blood pressure was 163/72, temperature was 97, respiratory rate was 22 and oxygen saturation was 96%. HEAD, EYES, EARS, NOSE AND THROAT: Normocephalic, atraumatic. NECK: Supple. HEART: Showed normal first and second heart sounds with no gallop, rub or murmur. CHEST: Clear to auscultation. No crepitation or rhonchi. ABDOMEN: Distended, soft, nontender. No guarding or rigidity. No organomegaly. All hernial orifices intact. Bowel sounds normal. NEUROLOGIC: He was awake, alert, responding appropriately. All cranial nerves intact. He moves extremities without difficulty, although he continued to be very tremulous and unsteady in his gait. His intake was 2200, no output was recorded. LABORATORY DATA: As of yesterday showed a white cell count 4900, hemoglobin 14, hematocrit 42, MCV 98 and platelet count of 64,000. His chemistry showed serum sodium of 145, potassium 4.3, chloride 108, bicarbonate 29, anion gap of 8, BUN 8, creatinine 0.8, estimated GFR was 98 mL per minute. His glucose was 93 and calcium was 8.2. His prothrombin time was 9.8, INR of 1, aPTT was 27. Urinalysis was essentially unremarkable. Toxic screen as of yesterday his blood alcohol was still high at 133 from admission of 408. His nasal screen for MRSA by PCR was negative. ASSESSMENT: Alcoholism and alcohol withdrawal protocol. The patient is very depressed, very suicidal, that continue through the care, although he has no plans. PLAN: My plan is to continue with the alcohol withdrawal protocol. Await the result of his lab work today and to consult the [facility] regarding his suicidal ideation. SUSANNA TRIVEDI MD DR: AILIN/ruby JOB#: [id number] / [id number]
[2018-09-28 20:00] VITALS: BP 162/87
[2018-09-28] MEDS: traZODone 100 MG TABLET. PO SCH (20:11)
[2018-09-28 21:00] VITALS: BP 123/63
[2018-09-29] MEDS: LORazepam 2 MG/ML VIAL IV PRN ×8 (04:00→20:50)
[2018-09-29] MEDS: chlordiazePOXIDE HCL 25 MG CAPSULE PO PRN ×4 (04:34→21:07)
[2018-09-29 08:00] VITALS: BP 142/75
[2018-09-29] MEDS: FOLIC/VIT B COMP W-C (RENAL) TABLET. PO SCH (08:00)
[2018-09-29] MEDS: LISINOPRIL 20 MG TABLET PO SCH (08:00)
[2018-09-29] MEDS: MULTIVITAMIN with MINERAL TABLET. PO SCH (08:00)
[2018-09-29] MEDS: THIAMINE 100 MG TABLET. PO SCH (08:00)
[2018-09-29] MEDS: CITALOPRAM 20 MG TABLET. PO SCH (08:00)
[2018-09-29] MEDS: NICOTINE 21MG PATCH. TD SCH (08:52)
[2018-09-29 10:00] VITALS: BP 142/80
[2018-09-29] MEDS: HALOPERIDOL LACT 5 MG/ML VIAL. IVP PRN ×2 (10:03→18:30)
[2018-09-29 12:30] VITALS: BP 147/77
[2018-09-29] MEDS ORDERED: LISINOPRIL 20 MG TABLET PO SCH (13:00)
[2018-09-29 14:30] VITALS: BP 112/63
--- NOTE | 2018-09-29 18:44 | PN ---
DATE: 09/29/2018 SUBJECTIVE: The patient is resting, slightly propped up, sleeping comfortably. He was extremely agitated, restless, combative, required wrist restraints, and 1:1 sitter this morning. He has been treated with Ativan, chlordiazepoxide and Haldol as well as fentanyl. PHYSICAL EXAMINATION: GENERAL: However, by the time I saw him, he was sleeping, slightly propped up comfortably, in no apparent distress. No pallor, jaundice, cyanosis, or thyromegaly. No jugular venous distention. No lower limb edema. VITAL SIGNS: His heart rate was 86, blood pressure 142/80, temperature was 98, respiratory rate was 18 and oxygen saturation was 96% on room air. HEAD, EYES, EARS, NOSE AND THROAT: Normocephalic, atraumatic. NECK: Supple. HEART: Showed normal first and second heart sounds. No gallop, rub or murmur. CHEST: Clear to auscultation. No crepitation or rhonchi. ABDOMEN: Distended, soft, nontender. NEUROLOGIC: He was very sleepy, lethargic as he has received multiple doses of Ativan and Haldol. His intake over the last 24 hours was 2215, output was recorded. LABORATORY DATA: As of this morning showed a serum sodium 135, potassium 4, chloride 97, bicarbonate 29, anion gap of 9, BUN 12, creatinine 0.8, estimated GFR was 99 mL per minute, his glucose was 89, calcium was 9. His white cell count was 6300, hemoglobin 14, hematocrit 43, MCV 97 and platelet count of 52,000. His prothrombin time and INR and aPTT were normal. Urinalysis was essentially unremarkable. Toxic screen was positive for blood alcohol of 408 on admission. As of yesterday it came down to less than 10. His nasal screen for MRSA was negative. ASSESSMENT: 1. Alcohol and alcohol withdrawal syndrome. 2. Depression, suicidal ideation, hypertension. The patient is actually having his withdrawal syndrome worse today. He is very combative, restless, agitated, impulsive for which he actually continues to be on alcohol withdrawal protocol. SUSANNA TRIVEDI MD DR: AILIN/ruby JOB#: [id number] / [id number]
[2018-09-29 19:23] VITALS: BP 165/97
[2018-09-29] MEDS: traZODone 100 MG TABLET. PO SCH (21:07)
[2018-09-30] VITALS (10 sets, daily range): BP systolic 126–190; BP diastolic 70–98
[2018-09-30] MEDS: LORazepam 2 MG/ML VIAL IV PRN ×5 (00:38→10:32)
[2018-09-30] MEDS: HALOPERIDOL LACT 5 MG/ML VIAL. IVP PRN ×2 (02:49→10:02)
[2018-09-30 06:31] LABS: CALCIUM 8.8 mg/dL (8.5-10.1); CREATININE 0.8 mg/dL (0.7-1.3); GFR 98.9; MAGNESIUM 1.9 mg/dL (1.8-2.4); POTASSIUM 3.7 mmol/L (3.5-5.1)
[2018-09-30] MEDS: FOLIC/VIT B COMP W-C (RENAL) TABLET. PO SCH (07:36)
[2018-09-30] MEDS: ENOXAPARIN 40 MG/0.4 ML SYRINGE. SQ SCH (07:36)
[2018-09-30] MEDS: CITALOPRAM 20 MG TABLET. PO SCH (07:37)
[2018-09-30] MEDS: MULTIVITAMIN with MINERAL TABLET. PO SCH (07:37)
[2018-09-30] MEDS: LISINOPRIL 20 MG TABLET PO SCH (07:37)
[2018-09-30] MEDS: THIAMINE 100 MG TABLET. PO SCH (07:37)
[2018-09-30] MEDS: NICOTINE 21MG PATCH. TD SCH (07:41)
[2018-09-30] MEDS: chlordiazePOXIDE HCL 25 MG CAPSULE PO PRN ×2 (08:34→19:14)
[2018-09-30] MEDS: POTASSIUM CL 20MEQ D5-0.45NACL 1,000 ML IV SCH (16:20)
[2018-09-30] MEDS ORDERED: ACETAMINOPHEN 650 MG SUPP.RECT. PR PRN (16:30)
[2018-09-30] MEDS ORDERED: LABETALOL 20 MG/4 ML DISP.SYRIN. IVP PRN (17:30)
[2018-09-30 18:40] LABS: BASO % 0 % (0-3); EOS % 0 % (0-3); HEMATOCRIT 43.5 % (39.0-53.0); HEMOGLOBIN 14.7 g/dL (13.0-17.5); LYMPH # 0.6 x10^3/uL (1.0-4.8); LYMPH % 7 % (24-48); MEAN CORPUSCULAR HEMOGLOBIN 33 pg (25-35); MEAN CORPUSCULAR HGB CONC 34 g/dL (31-37); MEAN CORPUSCULAR VOLUME 98 fL (79-100); MONO # 0.8 x10^3/uL (0.0-1.1); MONO % 9 % (0-9); NEUT # 7.8 x10^3uL (1.8-7.7); NEUT % 84 % (31-73); PLATELET COUNT 80 x10^3/uL (140-400); RED BLOOD COUNT 4.46 x10^6/uL (4.30-5.70); RED CELL DISTRIBUTION WIDTH 12.8 % (11.5-14.5); WHITE BLOOD COUNT 9.3 x10^3/uL (4.0-11.0)
[2018-09-30 18:55] LABS: ALBUMIN 3.5 g/dL (3.4-5.0); ALBUMIN/GLOBULIN RATIO 0.8 (1.0-1.7); CALCIUM 8.7 mg/dL (8.5-10.1); CREATININE 0.8 mg/dL (0.7-1.3); GFR 98.9; POTASSIUM 3.6 mmol/L (3.5-5.1)
[2018-09-30 18:58] LABS: BILIRUBIN,URINE NEG (NEG); CLARITY,URINE HAZY; COLOR,URINE AMBER; GLUCOSE,URINE NEG (NEG)
[2018-09-30 18:59] LABS: BACTERIA,URINE MOD /HPF (0-FEW); NITRITE,URINE POS (NEG); SQUAMOUS EPITHELIAL CELL,UR OCC /LPF; UROBILINOGEN,URINE 8 mg/dL (0.2 mg/dL)
[2018-09-30 19:33] LABS: INFLUENZA A PATIENT NEGATIVE (NEGATIVE)
[2018-09-30 19:34] LABS: INFLUENZA B PATIENT NEGATIVE (NEGATIVE)
[2018-09-30] MEDS: traZODone 100 MG TABLET. PO SCH (21:00)
--- NOTE | 2018-09-30 21:01 | PN ---
DATE: 09/30/2018 SUBJECTIVE: The patient seems to be more confused today, has been agitated, restless, seems to be getting out of bed, stating that he wants to go to work. According to nursing staff, he has not eaten or drank anything today. PHYSICAL EXAMINATION: GENERAL: When I examined him, he looked lethargic, no jaundice, cyanosis, or thyromegaly. No jugular venous distension. No lower limb edema. VITAL SIGNS: His heart rate was 94, blood pressure was 148/98, temperature was 98, respiratory rate 20 and oxygen saturation was 93% on room air. HEENT: Examination of the head, eyes, ears, nose and throat showed normocephalic, atraumatic. NECK: Supple. HEART: Showed normal first and second heart sounds with no gallop, rub or murmur. CHEST: Clear to auscultation. No crepitation or rhonchi. ABDOMEN: Distended, soft, nontender. No guarding or rigidity. No organomegaly. Hernial orifices are intact. Bowel sounds normal. NEUROLOGIC: He was very lethargic, arousable, very confused. All his cranial nerves are intact. He moves extremities without difficulty and very unsteady in his gait. His intake was 5278 and no output was recorded. LABORATORY DATA: His lab work this morning showed a serum sodium 138, potassium 3.7, chloride 101, bicarbonate 26, anion gap of 11, BUN 13, creatinine 0.8, estimated GFR was 98 mL per minute. His glucose was 107, calcium was 8.8, magnesium was 1.9. White cell count was 6300, hemoglobin 14, hematocrit 43, MCV 97 and platelet count of 52,000. ASSESSMENT: 1. Alcoholism and alcohol withdrawal syndrome. 2. Depression and suicidal ideation. 3. Hypertension. PLAN: The plan is to basically continue with the alcohol withdrawal protocol. As he did not eating and drinking, I will start him on some IV fluids in the form of D5 half-normal with potassium chloride. SUSANNA TRIVEDI MD DR: AILIN/ruby JOB#: [id number] / [id number]
[2018-09-30] MEDS: PIPERACILLIN/TAZOBACTAM 3.375 GM in IV NORMAL SALINE 50ML 50 ML IV SCH (21:54)
--- NOTE | 2018-09-30 23:25 | RAD ---
AP portable chest radiograph 09/30/2018 Clinical History: Fever, cough and lethargy. An AP erect portable digital radiograph of the chest was obtained. Comparison study is dated 09/26/2018. The cardiac silhouette is normal in size. The thoracic aorta is mildly tortuous. Elevation of the right hemidiaphragm is noted. No acute pulmonary infiltrate is seen. No pleural effusion or pneumothorax is noted. The osseous structures are unchanged. Impression: No acute pulmonary infiltrate is seen. Electronically signed by: Guru Thornton MD (09/30/2018 11:22 PM) [facility]
[2018-10-01] VITALS (11 sets, daily range): BP systolic 105–173; BP diastolic 66–86
[2018-10-01] MEDS: POTASSIUM CL 20MEQ D5-0.45NACL 1,000 ML IV SCH ×2 (02:05→18:23)
[2018-10-01] MEDS: LORazepam 2 MG/ML VIAL IV PRN (03:57)
[2018-10-01 05:38] LABS: BGAS PH 7.36 (7.35-7.46)
[2018-10-01] MEDS: PIPERACILLIN/TAZOBACTAM 3.375 GM in IV NORMAL SALINE 50ML 50 ML IV SCH ×3 (06:10→21:44)
[2018-10-01 06:28] LABS: HEMATOCRIT 41.3 % (39.0-53.0); HEMOGLOBIN 13.9 g/dL (13.0-17.5); RED BLOOD COUNT 4.23 x10^6/uL (4.30-5.70); RED CELL DISTRIBUTION WIDTH 12.8 % (11.5-14.5); WHITE BLOOD COUNT 10.3 x10^3/uL (4.0-11.0)
[2018-10-01 06:38] LABS: ALBUMIN 3.2 g/dL (3.4-5.0); ALBUMIN/GLOBULIN RATIO 0.7 (1.0-1.7); CALCIUM 8.4 mg/dL (8.5-10.1); CREATININE 0.8 mg/dL (0.7-1.3); GFR 98.9; POTASSIUM 3.7 mmol/L (3.5-5.1); TOTAL PROTEIN 7.6 g/dL (6.4-8.2)
[2018-10-01] MEDS ORDERED: CONTRAST GIVEN MC PRN (06:45)
[2018-10-01] MEDS ORDERED: IOHEXOL 350 MG/ML 100 ML VIAL. IV ONE ×2 (07:00→08:15)
[2018-10-01] MEDS: LACTOBACILLUS RHAMNOSUS GG 1 CAPSULE. PO SCH ×2 (08:31→18:26)
[2018-10-01] MEDS: FOLIC/VIT B COMP W-C (RENAL) TABLET. PO SCH (08:31)
[2018-10-01] MEDS: CITALOPRAM 20 MG TABLET. PO SCH (08:31)
[2018-10-01] MEDS: MULTIVITAMIN with MINERAL TABLET. PO SCH (08:31)
[2018-10-01] MEDS: THIAMINE 100 MG TABLET. PO SCH (08:31)
[2018-10-01] MEDS: LISINOPRIL 20 MG TABLET PO SCH (08:31)
[2018-10-01] MEDS: NICOTINE 21MG PATCH. TD SCH (08:31)
[2018-10-01] MEDS: ACETAMINOPHEN 650 MG SUPP.RECT. PR PRN (08:53)
[2018-10-01] MEDS: ENOXAPARIN 40 MG/0.4 ML SYRINGE. SQ SCH (08:55)
[2018-10-01] MEDS ORDERED: MVI, ADULT NO.4 WITH VIT K 10 ML, FOLIC ACID INJ 1 MG, THIAMINE INJ 100 MG in IV NORMAL... IV ONE ×4 (09:00)
[2018-10-01] MEDS ORDERED: VANCOMYCIN PER PHARMACY MC PRN (09:15)
[2018-10-01] MEDS ORDERED: ENOXAPARIN 40 MG/0.4 ML SYRINGE. SQ ONE (09:45)
[2018-10-01] MEDS ORDERED: VANCOMYCIN 2 GM in IV NORMAL SALINE 500ML 500 ML IV ONE (10:00)
[2018-10-01] MEDS: IPRATRPIUM/ALBUTEROL 0.5/2.5MG 3 ML NEBU. NEB SCH ×4 (10:19→20:25)
[2018-10-01] MEDS: VANCOMYCIN 1.25 GM in IV NORMAL SALINE 250ML 250 ML IV SCH (18:25)
[2018-10-01] MEDS: traZODone 100 MG TABLET. PO SCH (18:26)
[2018-10-01] MEDS: ENOXAPARIN ** NOTE DOSE ** SYRINGE SQ SCH (20:29)
--- NOTE | 2018-10-01 22:50 | PN ---
DATE: 10/01/2018 SUBJECTIVE: The patient is resting slightly propped up in bed, continued to be encephalopathic. He apparently spiked his temperature. We did panculture him last night, started empirically on IV antibiotic in the form of Zosyn and vancomycin. He was extremely hypoxic, requiring 80% FiO2 to maintain his oxygen saturation of more than 90%. We did attempt to do a CT angio of the chest unsuccessfully. He is now on being treated empirically with Lovenox as he is unable cooperate to hold his breath to do the CT angio of chest. OBJECTIVE: GENERAL: When I saw him this afternoon, he looked well and was clearly in no apparent respiratory distress. No pallor, jaundice, cyanosis. No lymphadenopathy noted. No thyromegaly. No jugular venous distension. No limb edema. VITAL SIGNS: His heart rate was 67, blood pressure was 138/74, temperature was 97.8, respiratory rate was 18 and oxygen saturation was 100% on 1 liter of oxygen. HEAD, EYES, EARS, NOSE AND THROAT: Showed normocephalic, atraumatic. NECK: Supple. HEART: Showed normal first and second heart sounds with no gallop, rub or murmur. CHEST: Clear to auscultation. No crepitation or rhonchi. ABDOMEN: Distended, soft, nontender. No guarding or rigidity. No organomegaly. Hernial orifice intact. Bowel sounds normal. NEUROLOGIC: He was continued to be extremely sedated. His intake over the last 24 hours was 540, output was 1250. LABORATORY DATA: As of this morning showed a white cell count of 10,300, hemoglobin 13.9, hematocrit 41, MCV 98 and platelet count of 101,000. His chemistry showed a serum sodium 137, potassium 3.7, chloride 102, bicarbonate 27, anion gap of 8, BUN 14, creatinine 0.8, estimated GFR was 99 mL per minute. His glucose was 157, calcium was 8.4. Total bilirubin, AST, ALT, alkaline phosphatase were normal. Total protein was 7.6, albumin of 3.2. His blood gases as of early this morning showed a pH of 7.36, pCO2 of 44, pO2 of 59, bicarbonate 25, and oxygen saturation was 89% on FiO2 of 60%. His influenza A and B were negative. His nasal screen for MRSA by PCR was negative. Urinalysis showed the urine was hazy with a pH of 5.5, specific gravity of 1.025, small amount of protein. The urine was negative for glucose, positive for ketones, trace amount of blood, positive for nitrite, negative for leukocyte esterase. There are 3-5 rbc's, 1-4 wbc's and moderate amount of bacteria. His toxic screen was negative. ASSESSMENT: 1. Alcoholism, alcohol withdrawal syndrome. 2. Depression, suicidal ideation. 3. Hypertension. 4. The patient developed acute hypoxic hypercapnic respiratory failure, likely due to excessive sedation 3. The patient also spiked his temperature. We did pancultured him including blood, urine culture and sensitivity and started him empirically on IV Zosyn and vancomycin. His chest x-ray showed that the cardiac silhouette is normal in size. The thoracic aorta is mildly tortuous, elevation of the right hemidiaphragm is noted. No acute pulmonary infiltrate is seen. No pleural effusion or pneumothorax is noted. The osseous structures are unchanged. PLAN: To minimize his sedation. Continue with IV fluid, continue with IV antibiotic for the time being. SUSANNA TRIVEDI MD DR: AILIN/ruby JOB#: [id number] / [id number]
[2018-10-02] VITALS (10 sets, daily range): BP systolic 132–148; BP diastolic 63–86
[2018-10-02] MEDS: VANCOMYCIN 1.25 GM in IV NORMAL SALINE 250ML 250 ML IV SCH ×3 (02:17→17:44)
[2018-10-02] MEDS: POTASSIUM CL 20MEQ D5-0.45NACL 1,000 ML IV SCH ×2 (04:25→20:43)
[2018-10-02] MEDS: ACETAMINOPHEN 650 MG SUPP.RECT. PR PRN (05:05)
[2018-10-02] MEDS: IPRATRPIUM/ALBUTEROL 0.5/2.5MG 3 ML NEBU. NEB SCH ×4 (05:16→19:52)
[2018-10-02] MEDS: PIPERACILLIN/TAZOBACTAM 3.375 GM in IV NORMAL SALINE 50ML 50 ML IV SCH ×3 (05:35→21:51)
[2018-10-02 06:14] LABS: HEMATOCRIT 39.7 % (39.0-53.0); HEMOGLOBIN 13.1 g/dL (13.0-17.5); RED BLOOD COUNT 4.04 x10^6/uL (4.30-5.70); RED CELL DISTRIBUTION WIDTH 12.9 % (11.5-14.5); WHITE BLOOD COUNT 7.8 x10^3/uL (4.0-11.0)
[2018-10-02 06:27] LABS: ALBUMIN 2.8 g/dL (3.4-5.0); ALBUMIN/GLOBULIN RATIO 0.7 (1.0-1.7); CALCIUM 8.2 mg/dL (8.5-10.1); CREATININE 0.9 mg/dL (0.7-1.3); GFR 86.4; POTASSIUM 3.9 mmol/L (3.5-5.1); TOTAL BILIRUBIN 0.9 mg/dL (0.2-1.0); TOTAL PROTEIN 6.9 g/dL (6.4-8.2)
[2018-10-02] MEDS: NICOTINE 21MG PATCH. TD SCH (09:11)
[2018-10-02] MEDS: ENOXAPARIN ** NOTE DOSE ** SYRINGE SQ SCH ×2 (09:11→20:42)
[2018-10-02] MEDS: THIAMINE 100 MG TABLET. PO SCH (09:27)
[2018-10-02] MEDS: LISINOPRIL 20 MG TABLET PO SCH (09:27)
[2018-10-02] MEDS: FOLIC/VIT B COMP W-C (RENAL) TABLET. PO SCH (09:27)
[2018-10-02] MEDS: CITALOPRAM 20 MG TABLET. PO SCH (09:28)
[2018-10-02] MEDS: LACTOBACILLUS RHAMNOSUS GG 1 CAPSULE. PO SCH ×2 (09:28→20:42)
[2018-10-02] MEDS: MULTIVITAMIN with MINERAL TABLET. PO SCH (09:28)
[2018-10-02 10:08] LABS: VANC TR 14.3 mcg/mL (10.0-20.0)
[2018-10-02] MEDS ORDERED: IOHEXOL 350 MG/ML 100 ML VIAL. IV ONE (10:15)
--- NOTE | 2018-10-02 11:24 | RAD ---
Examination: CT angiogram of the chest HISTORY: History of shortness of breath, low oxygen saturations COMPARISON: None available TECHNIQUE:Axial CT images of the chest were performed with IV contrast. Coronal sagittal 3-D MIP reformats are performed. Exposure: One or more of the following individualized dose reduction techniques were utilized for this examination: 1. Automated exposure control 2. Adjustment of the mA and/or kV according to patient size 3. Use of iterative reconstruction technique FINDINGS: Mild cardiomegaly. Coronary artery calcifications identified. There is a filling defect identified in the left upper lobe distal pulmonary arterial branches likely pulmonary embolus. There is moderate consolidation identified in the right lower lobe of the lung with air bronchograms. The right lower lobe distal bronchial branches are occluded. Enlarged right hilar lymph node identified measuring 2.6 cm. There are multiple patchy airspace opacities identified in the right middle lobe, left lower lobe of the lung. Mild emphysematous changes identified in the lungs. There is diffuse decreased attenuation noted in the liver likely hepatic steatosis. The visualized spleen, adrenals grossly appears unremarkable. Mild degenerative changes thoracic spine. Small hyperdensity identified in the stomach probably hyperdense food material or oral contrast or active bleeding. IMPRESSION: 1. Small filling defect identified in the distal left upper lobe pulmonary arterial branches likely pulmonary embolus. 2. Small hyperdensity identified in the stomach Small hyperdensity identified in the stomach probably hyperdense food material or oral contrast or active bleeding. 3. Moderate consolidation changes identified in the right lower lobe lung likely pneumonia or postobstructive atelectasis with occlusion of the distal right lower lobe bronchial branches. 4. Patchy airspace opacities identified in the right middle lobe, left lower lobe of the lung likely atelectasis or infiltrates. 5. Prominent right hilar lymphadenopathy identified. Patient's nurse was informed about the pulmonary embolus and also about the hyperdensity in the stomach with the possibility that this could be bleeding or hyperdense material or recent oral contrast exam. Electronically signed by: Marcus Zavala MD (10/02/2018 11:22 AM) [place] [id number]
--- NOTE | 2018-10-02 19:57 | PN ---
DATE: 10/02/2018 SUBJECTIVE: The patient is resting slightly propped up in bed, in no apparent distress. He is definitely more awake, alert. He apparently has had a CT angio of the chest, which showed multiple findings including small filling defects identified in the distal left upper lobe, pulmonary arterial branches, likely pulmonary embolus, small hyperdensity identified in the stomach, probably hyperdense food material, oral contrast for active bleeding, was found to have moderate consolidative changes identified in the right lower lobe, likely pneumonia or post-obstructive atelectasis with occlusion of the distal right lower lobe bronchial branches. He has also patchy airspace opacities identified in the right middle lobe, left lower lobe of the lung, likely atelectasis or infiltrates, has prominent right hilar lymphadenopathy identified. OBJECTIVE: GENERAL: On examining him today, he looked well and was clearly in no apparent respiratory distress, pale. There is no pallor, jaundice, cyanosis, or thyromegaly. No jugular venous distension. No limb edema. VITAL SIGNS: His heart rate was 75, blood pressure was 136/75, temperature was 97.7, respiratory rate was 18 and oxygen saturation was 94%. HEAD, EYES, EARS, NOSE AND THROAT: Showed normocephalic, atraumatic. NECK: Supple. HEART: Showed normal first and second heart sounds. No gallop, rub or murmur. CHEST: Showed central trachea, equal bilateral expansion, air entry, vesicular sounds. Crepitation mostly posteriorly, very few scattered rhonchi. ABDOMEN: Distended, soft, nontender. NEUROLOGIC: He was more awake, alert, apparently has had a shower and participated with physical therapy, although he continued to be very extremely weak and deconditioned. His intake over the last 24 hours was 2200, output was 1600. LABORATORY DATA: As of this morning, his white cell count was 7800, hemoglobin 13, hematocrit 39, MCV 99 and platelet count of 111,000. His chemistry showed a serum sodium 143, potassium 3.9, chloride 105, bicarbonate 28, anion gap of 10, BUN 13, creatinine 0.9, estimated GFR was 86 mL per minute. His glucose was 111. Calcium was 8.2. Total bilirubin, AST, ALT, alkaline phosphatase were normal. His total protein was 6.9, albumin was 2.8. ASSESSMENT: 1. Alcoholism, alcohol withdrawal syndrome. 2. Depression and suicidal ideation. 3. Hypertension. 4. The patient developed acute hypoxic hypercapnic respiratory failure, likely due to excessive sedation. 5. a. CT scan revealed that the patient has right upper lobe pulmonary emboli. b. Right lower lobe infiltrate versus post-obstructive atelectasis and bilateral pulmonary infiltrate. PLAN: My plan is to continue with IV antibiotic. Continue with Lovenox. His intake is adequate. We will discontinue his IV fluid. Continue with physical and occupational therapy. The finding in his chest are concerning. He probably needs obviously the anticoagulation as well as further evaluation by the supervisor color paste mixing that he might have a tumor and is occluding the distal right lower lobe bronchial main bronchus. SUSANNA TRIVEDI MD DR: AILIN/ruby JOB#: [id number] / [id number]
[2018-10-02] MEDS: traZODone 100 MG TABLET. PO SCH (20:42)
[2018-10-03 01:16] VITALS: BP 137/79
[2018-10-03] MEDS: VANCOMYCIN 1.25 GM in IV NORMAL SALINE 250ML 250 ML IV SCH ×2 (01:55→10:17)
[2018-10-03] MEDS: IPRATRPIUM/ALBUTEROL 0.5/2.5MG 3 ML NEBU. NEB SCH ×4 (04:54→19:56)
[2018-10-03 05:04] VITALS: BP 152/87
[2018-10-03] MEDS: PIPERACILLIN/TAZOBACTAM 3.375 GM in IV NORMAL SALINE 50ML 50 ML IV SCH ×2 (05:14→14:29)
[2018-10-03] MEDS: THIAMINE 100 MG TABLET. PO SCH (08:51)
[2018-10-03] MEDS: LACTOBACILLUS RHAMNOSUS GG 1 CAPSULE. PO SCH ×2 (08:51→21:54)
[2018-10-03] MEDS: FOLIC/VIT B COMP W-C (RENAL) TABLET. PO SCH (08:51)
[2018-10-03] MEDS: CITALOPRAM 20 MG TABLET. PO SCH (08:52)
[2018-10-03] MEDS: ENOXAPARIN ** NOTE DOSE ** SYRINGE SQ SCH ×2 (08:52→21:54)
[2018-10-03] MEDS: LISINOPRIL 20 MG TABLET PO SCH (08:52)
[2018-10-03] MEDS: MULTIVITAMIN with MINERAL TABLET. PO SCH (08:52)
[2018-10-03] MEDS: NICOTINE 21MG PATCH. TD SCH (08:52)
[2018-10-03] MEDS ORDERED: WARFARIN 10 MG TABLET. PO SCH (09:00)
[2018-10-03 09:29] LABS: BASO # 0.1 x10^3/uL (0.0-0.2); BASO % 1 % (0-3); EOS # 0.1 x10^3/uL (0.0-0.7); EOS % 2 % (0-3); HEMATOCRIT 37.2 % (39.0-53.0); HEMOGLOBIN 12.5 g/dL (13.0-17.5); LYMPH % 18 % (24-48); MEAN CORPUSCULAR HEMOGLOBIN 33 pg (25-35); MEAN CORPUSCULAR HGB CONC 34 g/dL (31-37); MEAN CORPUSCULAR VOLUME 97 fL (79-100); MONO # 0.7 x10^3/uL (0.0-1.1); MONO % 13 % (0-9); NEUT # 3.5 x10^3uL (1.8-7.7); NEUT % 66 % (31-73); PLATELET COUNT 136 x10^3/uL (140-400); RED BLOOD COUNT 3.82 x10^6/uL (4.30-5.70); RED CELL DISTRIBUTION WIDTH 12.5 % (11.5-14.5); WHITE BLOOD COUNT 5.3 x10^3/uL (4.0-11.0)
[2018-10-03 09:51] LABS: ALBUMIN 2.8 g/dL (3.4-5.0); ALBUMIN/GLOBULIN RATIO 0.8 (1.0-1.7); CALCIUM 7.9 mg/dL (8.5-10.1); CREATININE 1.1 mg/dL (0.7-1.3); GFR 68.5; POTASSIUM 3.4 mmol/L (3.5-5.1); TOTAL BILIRUBIN 0.7 mg/dL (0.2-1.0); TOTAL PROTEIN 6.1 g/dL (6.4-8.2)
[2018-10-03 09:53] LABS: VANC TR 17.8 mcg/mL (10.0-20.0)
[2018-10-03] MEDS: POTASSIUM CL 20MEQ D5-0.45NACL 1,000 ML IV SCH (10:40)
[2018-10-03 10:47] VITALS: BP 142/78
[2018-10-03 14:23] VITALS: BP 164/81
[2018-10-03 19:30] VITALS: BP 166/80
[2018-10-03] MEDS: AMOXICILLIN/K CLAV 875/125MG TABLET. PO SCH (21:54)
[2018-10-03] MEDS: traZODone 100 MG TABLET. PO SCH (21:54)
[2018-10-03 23:30] VITALS: BP 131/70
[2018-10-04] MEDS: POTASSIUM CL 20MEQ D5-0.45NACL 1,000 ML IV SCH
[2018-10-04] MEDS: IPRATRPIUM/ALBUTEROL 0.5/2.5MG 3 ML NEBU. NEB SCH ×4 (05:07→20:06)
[2018-10-04 05:45] VITALS: BP 155/90
[2018-10-04 07:49] LABS: HEMATOCRIT 37.2 % (39.0-53.0); HEMOGLOBIN 12.4 g/dL (13.0-17.5); RED BLOOD COUNT 3.86 x10^6/uL (4.30-5.70); RED CELL DISTRIBUTION WIDTH 12.4 % (11.5-14.5); WHITE BLOOD COUNT 4.8 x10^3/uL (4.0-11.0)
[2018-10-04 08:02] LABS: ALBUMIN 2.7 g/dL (3.4-5.0); ALBUMIN/GLOBULIN RATIO 0.6 (1.0-1.7); CALCIUM 8.3 mg/dL (8.5-10.1); GFR 76.5; TOTAL BILIRUBIN 0.4 mg/dL (0.2-1.0); TOTAL PROTEIN 6.9 g/dL (6.4-8.2)
[2018-10-04] MEDS ORDERED: POTASSIUM CHLORIDE 20 MEQ TABLET.ER. PO SCH (09:00)
[2018-10-04] MEDS: NICOTINE 21MG PATCH. TD SCH (09:00)
[2018-10-04] MEDS: AMOXICILLIN/K CLAV 875/125MG TABLET. PO SCH ×2 (09:27→21:19)
[2018-10-04] MEDS: FOLIC/VIT B COMP W-C (RENAL) TABLET. PO SCH (09:27)
[2018-10-04] MEDS: MULTIVITAMIN with MINERAL TABLET. PO SCH (09:27)
[2018-10-04] MEDS: CITALOPRAM 20 MG TABLET. PO SCH (09:27)
[2018-10-04] MEDS: LACTOBACILLUS RHAMNOSUS GG 1 CAPSULE. PO SCH ×2 (09:27→21:19)
[2018-10-04] MEDS: LISINOPRIL 20 MG TABLET PO SCH (09:27)
[2018-10-04] MEDS: THIAMINE 100 MG TABLET. PO SCH (09:27)
[2018-10-04] MEDS: ENOXAPARIN ** NOTE DOSE ** SYRINGE SQ SCH ×2 (09:28→21:19)
[2018-10-04 10:45] VITALS: BP 139/82
[2018-10-04] MEDS: POTASSIUM CHLORIDE 20 MEQ TABLET.ER. PO SCH ×2 (13:57→21:19)
[2018-10-04] MEDS ORDERED: NICOTINE 21MG PATCH. TD SCH (14:00)
[2018-10-04 15:34] VITALS: BP 138/73
[2018-10-04] MEDS ORDERED: WARFARIN 5 MG TABLET. PO SCH (16:00)
--- NOTE | 2018-10-04 19:46 | PN ---
DATE: 10/04/2018 SUBJECTIVE: The patient is sitting on the edge of the bed comfortably in no apparent distress. He is awake, alert. On questioning him, he denied any complaints. The nursing staff did not voice any concerns and that he has an uneventful night. OBJECTIVE: GENERAL: When I examined him, he looked well and was clearly in no apparent respiratory distress, slightly pale, but no jaundice, cyanosis, lymphadenopathy or thyromegaly. No jugular venous distension. No lower limb edema. VITAL SIGNS: Heart rate is 79, blood pressure was 139/82, temperature was 98.7, respiratory rate 20, and oxygen saturation was 95% on room air. HEAD, EYES, EARS, NOSE AND THROAT: Showed normocephalic, atraumatic. NECK: Supple. HEART: Showed normal first and second sounds. No gallop, rub or murmur. CHEST: Clear to auscultation. No crepitation or rhonchi. ABDOMEN: Distended, soft, nontender. No guarding or rigidity. No organomegaly. Hernial orifice intact. Bowel sounds normal. NEUROLOGIC: He is definitely more awake, alert, responding appropriately. All cranial nerves are intact. He moves extremities without difficulty. He is somewhat unsteady on his gait now. His intake was 600, output was 2950. LABORATORY DATA: His lab work this morning showed a white cell count of 4800, hemoglobin 12, hematocrit 37, MCV 96, and platelet count of 162,000. Serum sodium was 144, potassium 3, chloride 106, bicarbonate 29, anion gap of 9, BUN 9, creatinine 1, estimated GFR was 76 mL per minute, his glucose 88, calcium was 8.3. Total bilirubin, AST, ALT, alkaline phosphatase were normal. Total protein was 6.9, albumin was 2.7. His prothrombin time was 12.1, INR 1.2. His influenza A and B were negative. His nasal screen for MRSA PCR was negative. His urine culture and blood cultures are both negative. ASSESSMENT: 1. Alcoholism and alcohol withdrawal syndrome. 2. Depression and suicidal ideation. 3. Hypertension. 4. The patient developed acute hypoxic hypercapnic respiratory, likely due to excessive sedation. 3. CT scan revealed that the patient has: a. Right upper lobe pulmonary emboli. b. Right lower lobe infiltrate versus post-obstructive atelectasis and bilateral pulmonary infiltrate. PLAN: To continue with the Lovenox. Continue with the Augmentin 875 mg twice a day with food. Continue to monitor his prothrombin time and adjust Coumadin to maintain INR between 2-2.5. SUSANNA TRIVEDI MD DR: AILIN/ruby JOB#: [id number] / [id number]
[2018-10-04 20:43] VITALS: BP 136/80
[2018-10-04] MEDS: traZODone 100 MG TABLET. PO SCH (21:19)
[2018-10-04 23:45] VITALS: BP 138/71
[2018-10-05 05:00] VITALS: BP 137/83
[2018-10-05] MEDS: IPRATRPIUM/ALBUTEROL 0.5/2.5MG 3 ML NEBU. NEB SCH ×2 (05:26→09:37)
[2018-10-05 06:52] LABS: CALCIUM 8.9 mg/dL (8.5-10.1); CREATININE 1.1 mg/dL (0.7-1.3); GFR 68.5; POTASSIUM 4.1 mmol/L (3.5-5.1)
[2018-10-05] MEDS: MULTIVITAMIN with MINERAL TABLET. PO SCH (08:31)
[2018-10-05] MEDS: LISINOPRIL 20 MG TABLET PO SCH (08:31)
[2018-10-05] MEDS: THIAMINE 100 MG TABLET. PO SCH (08:31)
[2018-10-05] MEDS: POTASSIUM CHLORIDE 20 MEQ TABLET.ER. PO SCH (08:31)
[2018-10-05] MEDS: CITALOPRAM 20 MG TABLET. PO SCH (08:31)
[2018-10-05] MEDS: ENOXAPARIN ** NOTE DOSE ** SYRINGE SQ SCH (08:31)
[2018-10-05] MEDS: LACTOBACILLUS RHAMNOSUS GG 1 CAPSULE. PO SCH (08:31)
[2018-10-05] MEDS: AMOXICILLIN/K CLAV 875/125MG TABLET. PO SCH (08:31)
[2018-10-05] MEDS: FOLIC/VIT B COMP W-C (RENAL) TABLET. PO SCH (08:32)
[2018-10-05 10:39] VITALS: BP 136/84
[2018-10-05] MEDS ORDERED: AMOX1TAB61 PO (12:49)
[2018-10-05] MEDS ORDERED: WARF6TAB47 PO (12:49)
[2018-10-05] MEDS ORDERED: LISI-334 PO (13:01)
[2018-10-05] MEDS ORDERED: CITA20TA9 PO (13:01)
[2018-10-05] MEDS ORDERED: TRAZ-86 PO (13:01)
--- NOTE | 2018-10-05 20:07 | DS ---
DATE OF DISCHARGE: 10/05/2018 HOSPITAL COURSE: The patient is a 58-year-old male patient, who was originally admitted with alcohol intoxication and went into alcohol withdrawal. Unfortunately, he also had aspirated and developed aspiration pneumonia and acute hypoxic respiratory failure for which we started him on IV antibiotic in the form of Zosyn and vancomycin. CT scan of the chest showed that he has also pulmonary embolism. We will restart him on Lovenox. He did well and was switched him to oral Augmentin as well as Coumadin and has remained hemodynamically stable, afebrile, maintaining his oxygen saturation at 97-98% on room air. A decision was made to discharge him home. I had a lengthy discussion with his brother about all his problems including his pulmonary embolism that requires adjustment of his Coumadin to maintain INR between 2-2.5. Should continue with Augmentin together with his lisinopril, Celexa, and trazodone. PHYSICAL EXAMINATION: GENERAL: When I saw him this afternoon, he was sitting on the edge of the bed comfortably in no apparent respiratory distress. No pallor, jaundice, cyanosis, or thyromegaly. No jugular venous distension. No limb edema. VITAL SIGNS: His heart rate was 73, blood pressure 136/84, temperature was 98.1, respiratory rate 20, and oxygen saturation was 95% on room air. HEAD, EYES, EARS, NOSE AND THROAT: Normocephalic, atraumatic. NECK: Supple. HEART: Showed normal first and second sounds. No gallop, rub or murmur. CHEST: Clear to auscultation. No crepitation or rhonchi. ABDOMEN: Distended, soft, nontender. NEUROLOGIC: He is definitely more awake, alert, responding appropriately. All cranial nerves intact. EXTREMITIES: He moves extremities without difficulty, ambulates without assistance or assistive devices. His intake was 1400 and no output was recorded. LABORATORY DATA: Showed a white cell count 4800, hemoglobin 12.4, hematocrit 37, MCV 96, and platelet count of 162,000. Serum sodium was 144, potassium 4.1, chloride 106, bicarbonate 31, anion gap of 7, BUN 11, creatinine 1.1, estimated GFR was 68 mL per minute, his glucose 96, calcium was 8.9, magnesium was 2. His urine culture was negative and blood cultures were negative. DISCHARGE MEDICATIONS: He was discharged home to continue on Coumadin 6 mg daily to adjust the dose up and down to maintain his INR between 2-2.5 for at least 3-6 months, trazodone 100 mg p.o. at bedtime, lisinopril 20 mg daily, citalopram hydrobromide 20 mg once a day, and Augmentin 875 mg tablet twice a day for 7 days with food. FINAL DISCHARGE DIAGNOSES: 1. Alcoholism with alcohol withdrawal syndrome. 2. Depression and suicidal ideation. 3. Hypertension, acute. 4. Acute hypoxic hypercapnic respiratory failure, likely due to excessive sedation. The CT scan of the chest revealed the patient has right upper lobe pulmonary emboli, right lower lobe infiltrate versus post-obstructive atelectasis and bilateral pulmonary infiltrate. Plan is to continue with Augmentin and continue with Coumadin. SUSANNA TRIVEDI MD DR: AILIN/ruby JOB#: [id number] / [id number]
== END 2018-10-05 11:40 | disposition home or self-care (01) | DRG 177 ==
LOC: ER 18:44 → ICU 21:30 → 1 SOUTH 10-02 12:43
PROVIDERS: ADMIT Internal Medicine; ATTEND Internal Medicine
DX: J69.0 Pneumonitis due to inhalation of food and vomit (principal); I26.99 Other pulmonary embolism without acute cor pulmonale; J96.01 Acute respiratory failure with hypoxia; J96.02 Acute respiratory failure with hypercapnia; G93.40 Encephalopathy, unspecified; J98.11 Atelectasis; R45.851 Suicidal ideations; F10.239 Alcohol dependence with withdrawal, unspecified; K74.60 Unspecified cirrhosis of liver; F41.9 Anxiety disorder, unspecified; F10.229 Alcohol dependence with intoxication, unspecified; F32.9 Major depressive disorder, single episode, unspecified; I10 Essential (primary) hypertension; Z87.891 Personal history of nicotine dependence; Z78.1 Physical restraint status
CPT/HCPCS: 36415; 71045; 71275; 80048; 80053; 80076; 80202; 80307; 81001; 82140; 82550; 82803; 83690; 83735; 83880; 84443; 84484; 85025; 85027; 85610; 85730; 87040; 87086; 87641; 87804; 93005; 94640; 96365; 99406; G0480; J1630; J1650; J2060; J2543; J3010; J3370; J3490; J7040; J7050; J7120; J7620; Q9967; 97116; 97530; 97535; 99285-25; J7030

== ENCOUNTER 2019-05-06 23:04 | Emergency (ER) | payer SELFPAY ==
[~2019-05-06] VITALS: Ht 185.4 cm; Wt 88.7 kg
[~2019-05-06 23:04] MED LIST changes: +AMOX1TAB61 PO; +CITA20TA9 PO; +LISI-334 PO; +TRAZ-86 PO; +WARF6TAB47 PO
--- NOTE | 2019-05-06 23:54 | PHYS DOC ---
Past History Past Medical History: Hypertension (PAYTON MARTE DO) Past Surgical History: No Surgical History (PAYTON MARTE DO) Alcohol Use: Heavy Drug Use: Marijuana (PAYTON MARTE DO) Adult General Chief Complaint Chief Complaint: SUICDAL IDEATION HPI HPI 58-year-old male presents via EMS with suicidal ideation. The patient that he has been thinking about suicide a lot over the last 2-3 weeks. He has a lot going on in his life. There is no particular event that started this. The patient is homeless. He tells me that he has a plan to either cut himself with a knife across his wrists or to shoot himself. He tells me that the police took his gun away. He does not admit any previous attempts. He used to be on antidepressants, but has not on this medication for couple of months. He was on Celexa. Patient denies fever or chills. He denies any other complaints at this time. The patient's sister called me and informed me that the patient is homeless by choice. He had a place to live but he left there. He also drinks alcohol on a regular basis. She confirms he has struggled with depression for a long time. (PAYTON MARTE DO) Review of Systems Review of Systems Constitutional: Denies fever or chills [] Eyes: Denies change in visual acuity, redness, or eye pain [] HENT: Denies nasal congestion or sore throat [] Respiratory: Denies cough or shortness of breath [] Cardiovascular: No additional information not addressed in HPI [] GI: Denies abdominal pain, nausea, vomiting, bloody stools or diarrhea [] : Denies dysuria or hematuria [] Musculoskeletal: Denies back pain or joint pain [] Integument: Denies rash or skin lesions [] Neurologic: Denies headache, focal weakness or sensory changes [] Endocrine: Denies polyuria or polydipsia [] All other systems were reviewed and found to be within normal limits, except as documented in this note. (PAYTON MARTE DO) Allergies Allergies Allergies Coded Allergies Type Severity Reaction Last Updated Verified No Known Drug Allergies 10/01/18 No (PAYTON MARTE DO) Physical Exam Physical Exam Constitutional: Well developed, well nourished, no acute distress, non-toxic appearance. [] HENT: Normocephalic, atraumatic, bilateral external ears normal, oropharynx moist, no oral exudates, nose normal. [] Eyes: PERRLA, EOMI, conjunctiva normal, no discharge. [] Neck: Normal range of motion, no tenderness, supple, no stridor. [] Cardiovascular:Heart rate regular rhythm, no murmur [] Lungs & Thorax: Bilateral breath sounds clear to auscultation [] Abdomen: Bowel sounds normal, soft, no tenderness, no masses, no pulsatile masses. [] Skin: Warm, dry, no erythema, no rash. [] Back: No tenderness, no CVA tenderness. [] Extremities: No tenderness, no cyanosis, no clubbing, ROM intact, no edema. [] Neurologic: Alert and oriented X 3, normal motor function, normal sensory function, no focal deficits noted. [] Psychologic: Affect flat, judgement impaired, mood depressed. [] (PAYTON MARTE DO) EKG EKG [] (PAYTON MARTE DO) Radiology/Procedures Radiology/Procedures [] (PAYTON MARTE DO) Course & Med Decision Making Course & Med Decision Making Pertinent Labs and Imaging studies reviewed. (See chart for details) After talking with the patient, I believe he has put serious thought into hurting himself. He had 2 specific plans to commit suicide. He told me multiple times "what other choice to I have." He was unable to give me a commitment that he would not hurt himself if he left the hospital. The patient's labs are unremarkable except for elevated liver enzymes. The patient showed screen is negative. He is positive for alcohol. His psychiatric evaluation is pending. The screener has determined the patient would benefit from psychiatric admission. The patient is willing at this time. Placement is pending. I have ordered a repeat alcohol level 7 hours after arrival. I am signing the patient out to my colleague Dr. Julian at 0600. [] (PAYTON MARTE DO) Course & Med Decision Making Received patient at 6 AM. Agree with previous H&P. Patient has been resting comfortably while arrangements been made for longer-term evaluation and treatment.On License Of [facility] accepted the patient with the caveat that his blood pressure needed to be improved since it was in the 150s systolic during discussion with nursing staff here. Patient was given 0.2 mg of clonidine which improved his blood pressure. After relaying this information, [facility] accepted the patient for transfer. (DEBBI JULIAN DO) Dragon Disclaimer Dragon Disclaimer This electronic medical record was generated, in whole or in part, using a voice recognition dictation system. (PAYTON MARTE DO) Departure Departure: Impression: Primary Impression: Suicide ideation Disposition: 65 XFER TO PSYCH HOSP/UNIT Condition: IMPROVED Referrals: PCP,NO (PCP) PAYTON MARTE DO May 06, 2019 23:54 DEBBI JULIAN DO May 07, 2019 10:54
[2019-05-07 00:12] LABS: BASO # 0.1 x10^3/uL (0.0-0.2); BASO % 2 % (0-3); EOS # 0.1 x10^3/uL (0.0-0.7); EOS % 3 % (0-3); HEMATOCRIT 41.9 % (39.0-53.0); HEMOGLOBIN 14.1 g/dL (13.0-17.5); LYMPH # 1.9 x10^3/uL (1.0-4.8); LYMPH % 40 % (24-48); MEAN CORPUSCULAR HEMOGLOBIN 33 pg (25-35); MEAN CORPUSCULAR HGB CONC 34 g/dL (31-37); MEAN CORPUSCULAR VOLUME 97 fL (79-100); MONO # 0.4 x10^3/uL (0.0-1.1); MONO % 9 % (0-9); NEUT # 2.3 x10^3uL (1.8-7.7); NEUT % 47 % (31-73); PLATELET COUNT 144 x10^3/uL (140-400); RED BLOOD COUNT 4.33 x10^6/uL (4.30-5.70); RED CELL DISTRIBUTION WIDTH 15.3 % (11.5-14.5); WHITE BLOOD COUNT 4.8 x10^3/uL (4.0-11.0)
[2019-05-07 00:29] LABS: BARBITURATES NEG (NEG); BENZODIAZEPINES NEG (NEG); CANNABINOIDS NEG (NEG); COCAINE NEG (NEG); METHADONE NEG (NEG); OPIATES NEG (NEG); PHENCYCLIDINE NEG (NEG)
[2019-05-07 00:30] LABS: BACTERIA,URINE 0 /HPF (0-FEW); BILIRUBIN,URINE NEG (NEG); CLARITY,URINE CLEAR; COLOR,URINE COLORLESS; GLUCOSE,URINE NEG (NEG); NITRITE,URINE NEG (NEG); RBC,URINE 0 /HPF (0-2); UROBILINOGEN,URINE 0.2 mg/dL (0.2 mg/dL); WBC,URINE RARE /HPF (0-4)
[2019-05-07 00:32] LABS: ALBUMIN 4.1 g/dL (3.4-5.0); ALBUMIN/GLOBULIN RATIO 1.1 (1.0-1.7); CALCIUM 8.7 mg/dL (8.5-10.1); CREATININE 0.9 mg/dL (0.7-1.3); GFR 86.4; POTASSIUM 3.4 mmol/L (3.5-5.1); TOTAL BILIRUBIN 0.2 mg/dL (0.2-1.0); TOTAL PROTEIN 7.8 g/dL (6.4-8.2)
[2019-05-07 00:32] LABS: AMPHETAMINE/METHAMPHETAMINE NEG (NEG)
[2019-05-07] MEDS ORDERED: cloNIDine HCL 0.1 MG TABLET PO ONE (09:45)
[2019-05-07 11:22] VITALS: BP 160/79
== END 2019-05-07 11:25 ==
LOC: ER 23:04
DX: R45.851 Suicidal ideations (principal); F32.9 Major depressive disorder, single episode, unspecified; I10 Essential (primary) hypertension; F10.20 Alcohol dependence, uncomplicated; Z59.0 Homelessness; Y90.6 Blood alcohol level of 120-199 mg/100 ml
CPT/HCPCS: 36415; 80053; 80307; 81001; 85025; 99285; G0480

== ENCOUNTER 2020-03-13 22:53 | Emergency (ER) | payer SELFPAY ==
[~2020-03-13] VITALS: Ht 185.4 cm; Wt 88.7 kg
[~2020-03-13 22:53] MED LIST changes: +TRAZ-125 PO; -TRAZ-86 PO
[2020-03-13] MEDS ORDERED: FOLIC ACID 1 MG TABLET PO ONE (23:15)
[2020-03-13] MEDS ORDERED: MVI, ADULT NO.4 WITH VIT K 10 ML, THIAMINE INJ 100 MG in IV NORMAL SALINE 1,000ML 1,000... IV ONE ×3 (23:15)
[2020-03-13] MEDS ORDERED: PHYTONADIONE 10 MG/ML AMPUL. ONE (23:43)
[2020-03-13] MEDS ORDERED: THIAMINE 200 MG/2 ML VIAL. IV ONE (23:43)
[2020-03-13] MEDS ORDERED: MVI, ADULT NO.4 WITH VIT K 10 ML VIAL IV ONE (23:44)
[2020-03-13 23:54] LABS: BASO # 0.1 x10^3/uL (0.0-0.2); BASO % 1 % (0-3); EOS # 0.1 x10^3/uL (0.0-0.7); EOS % 3 % (0-3); HEMATOCRIT 41.5 % (39.0-53.0); LYMPH # 1.8 x10^3/uL (1.0-4.8); LYMPH % 38 % (24-48); MEAN CORPUSCULAR HEMOGLOBIN 32 pg (25-35); MEAN CORPUSCULAR HGB CONC 34 g/dL (31-37); MEAN CORPUSCULAR VOLUME 94 fL (79-100); MONO # 0.5 x10^3/uL (0.0-1.1); MONO % 10 % (0-9); NEUT # 2.3 x10^3uL (1.8-7.7); NEUT % 49 % (31-73); PLATELET COUNT 117 x10^3/uL (140-400); RED BLOOD COUNT 4.42 x10^6/uL (4.30-5.70); RED CELL DISTRIBUTION WIDTH 13.4 % (11.5-14.5); WHITE BLOOD COUNT 4.7 x10^3/uL (4.0-11.0)
--- NOTE | 2020-03-13 23:57 | EKG ---
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
--- NOTE | 2020-03-13 23:58 | PHYS DOC ---
Past History Past Medical History: Alcoholism, Depression, Hypertension Past Medical History Limited secondary to EtOH intoxication (LETY MATHEW DO) Past Surgical History: No Surgical History Past Surgical History Limited secondary to EtOH intoxication (LETY MATHEW DO) Smoking: Cigarettes Alcohol Use: Heavy Drug Use: Marijuana Social History Limited secondary to EtOH intoxication (LETY MATHEW DO) General Adult EDM: Chief Complaint: PSYCH EVALUATION HPI: HPI: 59-year-old male presents via EMS with report of increased depression to the point of suicidal ideation. Patient was at a park near the [facility] and reports he had a plan of either jumping into the river or in front of a train. Patient does report drinking a large amount of alcohol this evening. Patient reports he is an alcoholic. 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 Patient reports it is "just too much to see these young people go through this". Denies taking any medication to try to harm himself. Denies current drug use. History of present illness limited secondary to alcohol intoxication. (LETY MATHEW DO) Review of Systems: Review of Systems: Constitutional: Denies fever or chills Respiratory: Denies cough or shortness of breath Cardiovascular: Denies chest pain GI: Denies abdominal pain or vomiting Neurologic: Denies headache Psychiatric: Reports depression and suicidal ideation with plan Review of systems limited secondary to alcohol intoxication (LETY MATHEW DO) Current Medications: Current Meds: Current Medications Medications (Trade) Dose Ordered Sig/Tara Start Time Stop Time Status Last Admin Dose Admin Folic Acid (Folic Acid) 1 mg 1X ONCE 03/13/20 23:15 03/13/20 23:18 DC 03/13/20 23:52 1 MG Multivitamins/ Minerals (Infuvite Adult) 10 ml STK-MED ONCE 03/13/20 23:44 03/13/20 23:44 DC Multivitamins/ Minerals 10 ml/ Thiamine HCl 100 mg/Sodium Chloride 1,011.3 ml @ 1,000.187 mls/hr 1X ONCE 03/13/20 23:15 03/14/20 00:15 03/13/20 23:15 1,000.187 MLS/HR Phytonadione (Vitamin K) 10 mg STK-MED ONCE 03/13/20 23:43 03/13/20 23:44 DC Thiamine HCl (Thiamine Vial) 200 mg STK-MED ONCE 03/13/20 23:43 03/13/20 23:44 DC (LETY MATHEW DO) Allergies: Allergies: Allergies Coded Allergies Type Severity Reaction Last Updated Verified No Known Drug Allergies 10/01/18 No (LETY MATHEW DO) Physical Exam: PE: Constitutional: Well developed, well nourished, intoxicated HENT: Normocephalic, atraumatic Eyes: PERRL, EOMI, conjunctiva slightly injected bilaterally, no discharge, horizontal nystagmus noted Neck: Normal range of motion, supple Lungs & Thorax: No respiratory distress, equal chest rise and fall Abdomen: Soft, no tenderness Skin: Warm, dry, no erythema, no rash Extremities: No tenderness, ROM intact, no edema Neurologic: Alert and oriented X 2, obtunded, slurred speech, no focal deficits noted Psychologic: Judgment abnormal, reports suicidal ideation with plan (LETY MATHEW DO) Current Patient Data: Labs: Laboratory Tests Test 03/13/20 23:23 White Blood Count 4.7 x10^3/uL (4.0-11.0) Red Blood Count 4.42 x10^6/uL (4.30-5.70) Hemoglobin 14.0 g/dL (13.0-17.5) Hematocrit 41.5 % (39.0-53.0) Mean Corpuscular Volume 94 fL (79-100) Mean Corpuscular Hemoglobin 32 pg (25-35) Mean Corpuscular Hemoglobin Concent 34 g/dL (31-37) Red Cell Distribution Width 13.4 % (11.5-14.5) Platelet Count 117 x10^3/uL (140-400) L Neutrophils (%) (Auto) 49 % (31-73) Lymphocytes (%) (Auto) 38 % (24-48) Monocytes (%) (Auto) 10 % (0-9) H Eosinophils (%) (Auto) 3 % (0-3) Basophils (%) (Auto) 1 % (0-3) Neutrophils # (Auto) 2.3 x10^3uL (1.8-7.7) Lymphocytes # (Auto) 1.8 x10^3/uL (1.0-4.8) Monocytes # (Auto) 0.5 x10^3/uL (0.0-1.1) Eosinophils # (Auto) 0.1 x10^3/uL (0.0-0.7) Basophils # (Auto) 0.1 x10^3/uL (0.0-0.2) Vital Signs: Vital Signs Date Time Temp Pulse Resp B/P (MAP) Pulse Ox O2 Delivery O2 Flow Rate FiO2 03/13/20 23:11 98.5 105 20 135/71 (92) 93 Room Air (LETY MATHEW DO) EKG: EKG: @2337 Sinus tachycardia [id number], NO ST elevation, QRS 90ms, QT/QTc 320/427ms (LETY MATHEW DO) Radiology/Procedures: Radiology/Procedures: [] (LETY MATHEW DO) Course & Med Decision Making: Course & Med Decision Making Pertinent Lab studies reviewed. (See chart for details) Patient presents via EMS acutely intoxicated with report of suicidal ideation. EKG stable. Labs obtained and posted to chart. EtOH greater than 270. Banana bag initiated. Patient allowed to sober in emergency department with plan once clinically sober for evaluation. Awaiting tele-psych evaluation. Sign out given to Dr. Marte for further evaluation and final disposition. Discussed current findings and plan with patient, who acknowledges understanding and agreement. (LETY MATHEW DO) Course & Med Decision Making The patient was accepted for admission and transfer to [facility]. He went by ambulance in stable condition. (PAYTON MRATE DO) Dragon Disclaimer: Dragon Disclaimer: This electronic medical record was generated, in whole or in part, using a voice recognition dictation system. (LETY MATHEW DO) Departure Departure: Impression: Primary Impression: Suicidal ideation Additional Impression: Alcohol abuse Condition: STABLE Referrals: PCP,NO (PCP) Justification of Admission: Justification of Admission: Justification of Admission Dx: N/A (LETY MATHEW DO) LETY MATHEW DO Mar 13, 2020 23:58 PAYTON MARTE DO Mar 14, 2020 18:03
[2020-03-14 00:03] LABS: BACTERIA,URINE 0 /HPF (0-FEW); BILIRUBIN,URINE NEG (NEG); CLARITY,URINE CLEAR; COLOR,URINE YELLOW; GLUCOSE,URINE NEG (NEG); NITRITE,URINE NEG (NEG); RBC,URINE 0 /HPF (0-2); SQUAMOUS EPITHELIAL CELL,UR OCC /LPF; UROBILINOGEN,URINE 0.2 mg/dL (0.2 mg/dL); WBC,URINE OCC /HPF (0-4)
[2020-03-14 00:04] LABS: CALCIUM 8.1 mg/dL (8.5-10.1); GFR 76.2; POTASSIUM 3.9 mmol/L (3.5-5.1)
[2020-03-14 00:06] LABS: BARBITURATES NEG (NEG); BENZODIAZEPINES NEG (NEG); CANNABINOIDS NEG (NEG); COCAINE NEG (NEG); METHADONE NEG (NEG); OPIATES NEG (NEG); PHENCYCLIDINE NEG (NEG)
[2020-03-14 00:09] LABS: AMPHETAMINE/METHAMPHETAMINE NEG (NEG)
[2020-03-14 00:23] LABS: ALBUMIN 4.1 g/dL (3.4-5.0); ALBUMIN/GLOBULIN RATIO 1.2 (1.0-1.7); MAGNESIUM 2.2 mg/dL (1.8-2.4); TOTAL BILIRUBIN 0.3 mg/dL (0.2-1.0); TOTAL PROTEIN 7.6 g/dL (6.4-8.2)
[2020-03-14 11:48] VITALS: BP 160/87
[2020-03-14] MEDS ORDERED: LORazepam 1 MG TABLET PO ONE (12:00)
== END 2020-03-14 12:35 ==
LOC: ER 22:53
DX: R45.851 Suicidal ideations (principal); F10.20 Alcohol dependence, uncomplicated; F32.9 Major depressive disorder, single episode, unspecified; I10 Essential (primary) hypertension; F17.210 Nicotine dependence, cigarettes, uncomplicated; Y90.8 Blood alcohol level of 240 mg/100 ml or more
CPT/HCPCS: 36415; 80053; 80307; 81001; 82553; 83690; 83735; 84484; 85025; 85610; 85730; 93005; 96365; 99285; G0480; J7030

== ENCOUNTER 2020-10-24 18:32 | Emergency (ER) | payer SELFPAY ==
[~2020-10-24] VITALS: Ht 185.4 cm; Wt 88.7 kg
[~2020-10-24 18:32] MED LIST changes: -LISI-334 PO; +LISI20TA18 PO
--- NOTE | 2020-10-24 18:35 | PHYS DOC ---
Past History Past Medical History: Alcoholism, Anxiety, Depression, Hypertension Past Surgical History: No Surgical History Smoking: Cigarettes Alcohol Use: Heavy Drug Use: Marijuana General Adult EDM: Chief Complaint: SUICIDAL IDEATION HPI: HPI: ".. I been drinking too much.. I was in the park.. the police said I needed to come to the hospital.. I ve been depressed.. drinking too much.. thinking about killing myself.. or at least drinking myself to .. I did well for a while.. I was in here back on Sep in 2018.. but got into this cyclic drinking again.. lo st my job.. " Patient is a 60 year old male who presents with above hx and complaints depression, suicide ideation, and alcohol abuse. Patient previous history of admissions for alcohol abuse and suicidal ideation. Patient last admitted back on 10/05/2018 for similar type presentation. Patient does have a history of alcohol withdrawal seizures after extensive prolonged alcohol abuse. Patient during the admission of 09/26/2018 he developed aspiration pneumonia and acute hypoxia with respiratory failure. Patient patient also found to have a pulmonary embolus on that date. Patient at that time was started on Coumadin. Patient no longer maintains his Coumadin or other meds. Patient denies any travel. Patient denies any trauma. Patient denies any severe ill contacts. Patient does not follow regularly with primary care. Patient was referred here by Police Department for being drunk and in the city park. Patient's suicidal ideation does not have a specific plan other than drinking excessive alcohol. Review of Systems: Review of Systems: Constitutional: Denies fever or chills Eyes: Denies change in visual acuity HENT: Denies nasal congestion or sore throat Respiratory: Denies cough or shortness of breath Cardiovascular: Denies chest pain or edema GI: Denies abdominal pain, nausea, vomiting, bloody stools or diarrhea : Denies dysuria Musculoskeletal: Denies back pain or joint pain Integument: Denies rash Neurologic: Denies headache, focal weakness or sensory changes Endocrine: Denies polyuria or polydipsia Lymphatic: Denies swollen glands Psychiatric: Complains of suicidal ideation, depression and anxiety Family History: Family History: Noncontributory to presentation Current Medications: Current Meds: See nursing for home meds Allergies: Allergies: Allergies Coded Allergies Type Severity Reaction Last Updated Verified No Known Drug Allergies 10/01/18 No Physical Exam: PE: Constitutional: Moderate acute distress, intoxicated in appearance. [] HENT: Normocephalic, atraumatic, bilateral external ears normal, oropharynx moist, no oral exudates, nose normal. [] Eyes: PERRLA, EOMI, conjunctiva normal, no discharge. [] Neck: Normal range of motion, no tenderness, supple, no stridor. [] Cardiovascular: Tachycardia heart rate regular rhythm, no murmur [] Lungs & Thorax: Bilateral breath sounds equal apex with scattered wheezes and bibasal crackles on on auscultation [] Abdomen: Bowel sounds normal, soft, no tenderness, no masses, no pulsatile masses. [] Skin: Warm, dry, no erythema, no rash. Poor turgor Back: No tenderness, no CVA tenderness. [] Extremities: No tenderness, no cyanosis, no clubbing, ROM intact, no edema. [] No cording appreciated Neurologic: Alert and oriented X 3, moves all ext. on request, decreased plantar sensation., no focal deficits noted. Ambulatory with a slightly wide gait. DTRs +2 patella and brachial. No drift. 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 Psychologic: Affect anxious, depressed, reports suicidal ideation,, judgement normal, flat affect EKG: EKG: My interpretation EKG shows a sinus rhythm at 83 bpm. No findings acute STEMI with contralateral changes but does have a low voltage in limb leads as well as right ventricular hypertrophic changes. Read at 1858 Radiology/Procedures: Radiology/Procedures: [][address] [address] IMAGING REPORT Signed PATIENT: ROYAL UNGER EACCOUNT: [id number] : 1960 LOCATION: ER AGE: 60 SEX: M EXAM STATUS: REG ER ORD. PHYSICIAN: HORTENSIA SYKES MD REASON: cp, etoh, si, depression, tachy PROCEDURE: PORTABLE CHEST 1V XR CHEST 1V History: Reason: cp, etoh, si, depression, tachy / Spl. Instructions: / History: Comparison: September 30, 2018 Findings: Low lung volumes. Patchy bibasilar opacities, left greater than right. No pl eural effusion. No pneumothorax. Normal heart size. Impression: 1. Low lung volumes with patchy bibasilar opacities, likely atelectasis. Electronically signed by: Ovidio Hansen DO (10/24/2020 6:56 PM) [facility] DICTATED AND SIGNED BY: OVIDIO HANSEN DO DATE: 10/24/20 185 CC: HORTENSIA SYKES MD; PCP,NO ~MTH0 0 Heart Score: C/O Chest Pain: N/A HEART Score for Chest Pain: HEART Score for Chest Pain Response (Comments) Value History Slighlty/Non-Suspicious 0 ECG Nonspecific Repolarizatio 1 Age >45 - < 65 1 Risk Factors 1 or 2 Risk Factors 1 Troponin < Normal Limit 0 Total 3 Risk Factors: Risk Factors: DM, Current or recent (<one month) smoker, HTN, HLP, family history of CAD, obesity. Risk Scores: Score 0 - 3: 2.5% MACE over next 6 weeks - Discharge Home Score 4 - 6: 20.3% MACE over next 6 weeks - Admit for Clinical Observation Score 7 - 10: 72.7% MACE over next 6 weeks - Early Invasive Strategies Course & Med Decision Making: Course & Med Decision Making Pertinent Labs and Imaging studies reviewed. (See chart for details) Awaiting PAT team call back 1930 hrs. Recalled. See PAT eval. pt. to be seen at [facility]. Pt. transport by ambulance for his Suicidal Ideation Impression: 1. Alcohol Abuse 279 2. Depression 3. Suicidal Ideation 4. Elevated LFT- AST 49/ALt 64/Alk Phos 435 [] Dragon Disclaimer: Sarabjit Disclaimer: This electronic medical record was generated, in whole or in part, using a voice recognition dictation system. Departure Departure: Referrals: PCP,NO (PCP) HORTENSIA SYKES MD Oct 24, 2020 18:35
[2020-10-24] MEDS: IV RINGERS SOLUTION,LACTATED 1,000 ML IV SCH (18:45)
--- NOTE | 2020-10-24 18:59 | RAD ---
XR CHEST 1V History: Reason: cp, etoh, si, depression, tachy / Spl. Instructions: / History: Comparison: September 30, 2018 Findings: Low lung volumes. Patchy bibasilar opacities, left greater than right. No pleural effusion. No pneumo thorax. Normal heart size. Impression: 1. Low lung volumes with patchy bibasilar opacities, likely atelectasis. Electronically signed by: Ovidio Santana DO (10/24/2020 6:56 PM) [facility]
[2020-10-24 19:17] LABS: BASO # 0.1 x10^3/uL (0.0-0.2); BASO % 1 % (0-3); EOS # 0.2 x10^3/uL (0.0-0.7); EOS % 3 % (0-3); HEMATOCRIT 43.5 % (39.0-53.0); HEMOGLOBIN 14.6 g/dL (13.0-17.5); LYMPH # 2.9 x10^3/uL (1.0-4.8); LYMPH % 43 % (24-48); MEAN CORPUSCULAR HEMOGLOBIN 33 pg (25-35); MEAN CORPUSCULAR HGB CONC 34 g/dL (31-37); MEAN CORPUSCULAR VOLUME 97 fL (79-100); MONO # 0.7 x10^3/uL (0.0-1.1); MONO % 10 % (0-9); NEUT # 2.9 x10^3uL (1.8-7.7); NEUT % 44 % (31-73); PLATELET COUNT 145 x10^3/uL (140-400); WHITE BLOOD COUNT 6.8 x10^3/uL (4.0-11.0)
[2020-10-24 19:18] LABS: CALCIUM 9.1 mg/dL (8.5-10.1); CREATININE 1.1 mg/dL (0.7-1.3); GFR 68.1; POTASSIUM 4.5 mmol/L (3.5-5.1)
[2020-10-24 19:23] LABS: ACETAMIN < 2.0 mcg/mL (10-30); SALIC 3.3 mg/dL (2.8-20.0)
--- NOTE | 2020-10-24 19:28 | EKG ---
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
[2020-10-24 19:31] LABS: ALBUMIN 4.3 g/dL (3.4-5.0); DIRECT BILIRUBIN 0.1 mg/dL (0.0-0.2); TOTAL BILIRUBIN 0.3 mg/dL (0.2-1.0); TOTAL PROTEIN 7.8 g/dL (6.4-8.2)
[2020-10-24 20:56] LABS: AMPHETAMINE/METHAMPHETAMINE NEG (NEG); BARBITURATES NEG (NEG); BENZODIAZEPINES NEG (NEG); CANNABINOIDS NEG (NEG); COCAINE NEG (NEG); METHADONE NEG (NEG); OPIATES NEG (NEG); PHENCYCLIDINE NEG (NEG)
[2020-10-24 20:58] LABS: BILIRUBIN,URINE NEG (NEG); CLARITY,URINE CLEAR; COLOR,URINE YELLOW; GLUCOSE,URINE NEG (NEG)
[2020-10-24 20:59] LABS: BACTERIA,URINE 0 /HPF (0-FEW); NITRITE,URINE NEG (NEG); RBC,URINE 0 /HPF (0-2); SQUAMOUS EPITHELIAL CELL,UR OCC /LPF; UROBILINOGEN,URINE 0.2 mg/dL (0.2 mg/dL); WBC,URINE 0 /HPF (0-4)
[2020-10-25 00:55] VITALS: BP 117/72
== END 2020-10-25 00:55 | disposition short-term general hospital (02) ==
LOC: ER 18:32
DX: F10.20 Alcohol dependence, uncomplicated (principal); F32.9 Major depressive disorder, single episode, unspecified; R45.851 Suicidal ideations; R74.8 Abnormal levels of other serum enzymes; F41.9 Anxiety disorder, unspecified; I10 Essential (primary) hypertension; F17.210 Nicotine dependence, cigarettes, uncomplicated; Y90.8 Blood alcohol level of 240 mg/100 ml or more
CPT/HCPCS: 36415; 71045; 80048; 80076; 80307; 80329; 81001; 82550; 83690; 83735; 83880; 84443; 84484; 85025; 85610; 85730; 93005; 96360; 99285; G0480; J7120